=== PATIENT | male | born 1965 | race Two or more races ===

== ENCOUNTER 2024-12-25 09:31 | Inpatient (IN) | payer MEDICAID ==
[~2024-12-25] VITALS: Ht 175.3 cm; Wt 74.1 kg
[~2024-12-25 09:31] MED LIST: ASPI81CH59 PO; ATOR40TA52 PO; CEPH500C PO; EMPA1TAB PO; FURO40TA4 PO
--- NOTE | 2024-12-25 10:26 | ED.PDOC ---
General HPI Comments 59 y.o male with PMHx of CHF, presents to the ED for a chief complaint of bilateral testicle swelling associated with SOB and lower extremity swelling that started last night. Patient reports testicle swelling has worsened this morning, causing him to have difficulty with urine output. Patient reports similar issue in the past and states he was seen at the ED and had the right testicle drained. Patient denies any fever, chills, pain, nausea or vomiting. Patient admits to methamphetamine use 3-4 days ago and states occasional alcohol and tobacco use. Chief Complaint: Testicle Pain Time Seen by MD: 10:08 Primary Care Provider: KARYNA Spangler notes: Nurses Notes, Medications, Allergies Allergies: Coded Allergies: NO KNOWN ALLERGIES (Unverified , 12/04/24) Home Meds Reported Medications Empagliflozin (Jardiance) 10 Mg Tab, 1 TAB PO DAILY for 30 Days, #30 12/05/24 Aspirin (Aspirin Low Dose) 81 Mg Chw, 1 TAB PO DAILY for 30 Days, #30 12/05/24 Atorvastatin Calcium (ATORVASTATIN CALCIUM) 40 Mg Tab, 1 TAB PO DAILY for 30 Days, #30 12/05/24 Furosemide (Furosemide) 40 Mg Tab, 1 TAB PO DAILY for 60 Days, #60 12/05/24 Information Source: Patient Mode of Arrival: Ambulatory Severity: Moderate Timing: Hours Duration: Since onset Onset: Spontaneous Symptoms: None History of: Other Location male: R Scrotum, L Scrotum Penile discharge: None Modifying factors: None associated signs and symptoms: Other Past Medical History PAST MEDICAL HISTORY: CHF, Hypotension Surgical History: Hernia Repair Family History Family History: Reviewed,noncontributory to illness Social History Smoker: Cigarettes Alcohol: Occasionally Drugs: Methamphetamine Lives In: Home Constitutional: denies: chills, diaphoresis, fatigue, fever, malaise, sweats, weakness, others EENTM: denies: blurred vision, double vision, ear bleeding, ear discharge, ear drainage, ear pain, ear ringing, eye pain, eye redness, hearing loss, mouth pain, mouth swelling, nasal discharge, nose bleeding, nose congestion, nose pain, photophobia, tearing, throat pain, throat swelling, voice changes, others Respiratory: reports: SOB at rest, shortness of breath, SOB with excertion; denies: cough, hemoptysis, orthopnea, stridor, wheezing, others Cardiovascular: denies: chest pain, dizzy spells, diaphoresis, Dyspnea on exertion, edema, irregular heart beat, left arm pain, lightheadedness, palpitati ons, PND, syncope, others Gastrointestinal: denies: abdomen distended, abdominal pain, blood streaked bowels, constipated, diarrhea, dysphagia, difficulty swallowing, hematemesis, melena, nausea, poor appetite, poor fluid intake, rectal bleeding, rectal pain, vomiting, others Genitourinary: reports: testicle swelling; denies: burning, dysuria, flank pain, frequency, hematuria, incontinence, penile discharge, penile sore, pain, testicle pain, urgency, others Neurological: denies: dizziness, fainting, headache, left sided numbness, left sided weakness, numbness, paresthesia, pre-existing deficit, right sided numbness, right sided weakness, seizure, speech problems, tingling, tremors, weakness, others Musculoskeletal: reports: others (lower extremity swelling ); denies: back pain, gout, joint pain, joint swelling, muscle pain, muscle stiffness, neck pain Integumetry: denies: bruises, change in color, change in hair/nails, dryness, laceration, lesions, lumps, rash, wounds, others Allergic/Immunocompromised: denies: Difficulty Healing, Frequent Infections, Hives, Itching, others Hematologic/Lymphatic: denies: anemia, blood clots, easy bleeding, easy bruising, swollen glands, others Endocrine: denies: excessive hunger, excessive sweating, excessive thirst, excessive urination, flushing, intolerance to cold, intolerance to heat, unexplained weight gain, unexplained weight loss, others Psychiatric: denies: anxiety, bipolar disorder, depression, hopeless, panic disorder, schizophrenia, sleepless, suicidal, others All Other Systems: Reviewed and Negative Physical Exam General Appearance: Moderate Distress HEENT: Normal ENT Inspection, Pharynx Normal, TMs Normal Neck: Full Range of Motion, Non-Tender, Normal, Normal Inspection Respiratory: Chest Non-Tender, Lungs Clear, No Accessory Muscle Use, No Respiratory Distress, Normal Breath Sounds Cardiovascular: No Edema, No JVD, No Murmur, No Gallop, Normal Peripheral Pulses, Regular Rate/Rhythm Breast Exam: Deferred Gastrointestinal: No Organomegaly, Non Tender, No Pulsatile Mass, Normal Bowel Sounds, Soft Genitalia: Scrotum, Testicle (Testicular swelling scrotal swelling) Pelvic: Deferred Rectal: Deferred Extremities: No calf tenderness, Normal capillary refill, Normal inspection, Normal range of motion, Non-tender, No pedal edema Musculoskeletal : Apperance: Normal Neurologic: Alert, automation/controls manager II-XII nml as Tested, No Motor Deficits, Normal Affect, Normal Mood, No Sensory Deficits Cerebellar Function: Normal Reflexes: Normal Skin: Dry, Normal Color, Warm Lymphatic: No Adenopathy Was a procedure done? Was a procedure done?: No Differential Diagnosis Kidney stone (Female): N/A Penile/Scrotal: Epidiymitis, Prostatitis, Fractured Penis, Hydrocele, Testicular Torsion, Urolithiasis X-Ray, Labs, Meds, VS Vital Signs Date Time Temp Pulse Resp B/P (MAP) Pulse Ox O2 Delivery O2 Flow Rate FiO2 12/25/24 13:00 90 12/25/24 13:00 62 21 110/71 (84) 95 12/25/24 11:13 64 24 94 Room Air* 0 21 12/25/24 10:53 113/78 12/25/24 10:50 88 16 113/78 (90) 94 12/25/24 10:10 Room Air* 0 21 12/25/24 09:41 96.9 53 16 122/66 (84) 96 96.9 Lab Test 12/25/24 12:53 12/25/24 11:42 12/25/24 11:25 12/25/24 10:38 Range/Units Troponin I High Sensitivity 14 15 </=54 ng/L Urine Color Light-yellow Yellow Urine Clarity Clear Clear Urine pH 6.0 5.0-9.0 Urine Specific Malcolm 1.007 1.001-1.035 Urine Protein Negative Negative Urine Ketones Negative Negative Urine Blood Negative Negative /uL Urine Nitrite Negative Negative Urine Bilirubin Negative Negative Urine Urobilinogen Normal Negative mg/dL Urine Leukocyte Esterase Negative Negative /uL Urine RBC <1 0 - 3 /hpf Urine Microscopic WBC < 1 0-3 /HPF Urine Squamous Epithelial Cells None seen <5 /hpf Urine Bacteria None seen None Seen /hpf Urine Hyaline Casts Few 0 - 2 /lpf Urine Glucose Normal Normal mg/dL Urine Opiates Screen Neg NEGATIVE Urine Fentanyl Screen Neg NEGATIVE Urine Barbiturates Screen Neg NEGATIVE Urine Phencyclidine Screen Neg NEGATIVE Urine Amphetamines Screen Neg NEGATIVE Urine Benzodiazepines Screen Neg NEGATIVE Urine Cocaine Screen Neg NEGATIVE Urine Cannabinoids Screen Neg NEGATIVE POC Glucose 70 70-106 mg/dl White Blood Count 4.4 4.4-10.8 10^3/uL Red Blood Count 5.30 4.5-5.90 10^6/uL Hemoglobin 15.7 13.5-17.5 g/dL Hematocrit 47.7 41.0-53.0 % Mean Corpuscular Volume 90.0 80.0-100.0 fL Mean Corpuscular Hemoglobin 29.7 28.0-32.0 pg Mean Corpuscular Hemoglobin Concent 33.0 32.0-36.0 g/dL Red Cell Distribution Width 15.6 H 11.8-14.3 % Platelet Count 221 140-450 10^3/uL Mean Platelet Volume 7.2 6.9-10.8 fL Neutrophils (%) (Auto) 68.2 37.0-80.0 % Lymphocytes (%) (Auto) 19.3 10.0-50.0 % Monocytes (%) (Auto) 9.3 0.0-12.0 % Eosinophils (%) (Auto) 1.6 0.0-7.0 % Basophils (%) (Auto) 1.6 0.0-2.0 % Neutrophils # (Auto) 3.0 1.6-8.6 10 ^3/uL Lymphocytes # (Auto) 0.8 0.4-5.4 10 ^3/uL Monocytes # (Auto) 0.4 0-1.3 10 ^3/uL Eosinophils # (Auto) 0.1 0-0.8 10 ^3/uL Basophils # (Auto) 0.1 0-0.2 10 ^3/uL Nucleated Red Blood Cells 0.0 % Sodium Level 136 136-145 mmol/L Potassium Level 3.7 3.5-5.1 mmol/L Chloride Level 104 98-107 mmol/L Carbon Dioxide Level 25 20-31 mmol/L Anion Gap 7 5-15 Blood Urea Nitrogen 23 9-23 mg/dL Creatinine 1.39 H 0.700-1.30 mg/dL Glomerular Filtration Rate Calc 58 >90 mL/min BUN/Creatinine Ratio 16.5 10.0-20.0 Serum Glucose 42 *L 74-106 mg/dL Calcium Level 9.1 8.7-10.4 mg/dL B-Type Natriuretic Peptide 4787.87 0-100 pg/mL Current Medications Medications (Trade) Dose Ordered Sig/Negrita Route Start Time Stop Time Status Last Admin Furosemide (Lasix Injection) 40 mg ONCE ONCE IV 12/25/24 10:30 12/25/24 10:31 DC 12/25/24 10:53 The patient was given Lasix 40 mg IV push The patient's urine test is negative. The CBC and chemistry panel are within normal limits except for BUN of 23 and a creatinine of 1.39 The urine test is negative The troponin level x2 is negative The BNP is significantly elevated at 4787.87 The chest x-ray shows: IMPRESSION: Patchy bibasilar airspace opacities with trace pleural effusion. At this time, the patient was being admitted to the hospitalist A cardiology consult will be obtained The patient was understands and agrees with the management The patient states that he did not want a [place] catheter placed The patient was able to give us a urine sample The patient was also having episodes of hypoglycemia Images Reviewed?: Images reviewed and evaluated by me Time of 1ST Reevaluation: 10:22 Reevaluation 1ST: Unchanged Patient Education/Counseling: Diagnosis, Treatment, Prognosis, Need For Follow Up Family Education/Counseling: No Family Present Departure 1 Departure Time of Disposition: 14:27 Impression: Primary Impression: Testicular swelling Additional Impressions: Shortness of breath Hypoglycemia Elevated brain natriuretic peptide (BNP) level Disposition: ADMITTED INPATIENT Admit to: Med Surg Condition: Fair Critical Care Note Critical Care Time?: Yes (45 min-critical care time only) Stability Stability form required: Yes Unstable for transfer: Telemetry monitoring (Telemetry monitoring required), ED Physician Assesment (Clinical assesment) I personally scribed for THANG JOYNER MD ([email or web address]) on 12/25/24 at 10:25. Electronically submitted by Miroslava Walton ([facility]). THANG JOYNER MD Dec 25, 2024 10:25
[2024-12-25] MEDS: FUROSEMIDE 40 MG/4 ML VIAL IV ONE (10:53)
[2024-12-25 11:01] LABS: Basophils # (auto) 0.1 10 ^3/uL (0-0.2); Basophils % (auto) 1.6 % (0.0-2.0); Eosinophils # (auto) 0.1 10 ^3/uL (0-0.8); Eosinophils % (auto) 1.6 % (0.0-7.0); Hematocrit 47.7 % (41.0-53.0); Hemoglobin 15.7 g/dL (13.5-17.5); Lymphocytes # (auto) 0.8 10 ^3/uL (0.4-5.4); Lymphocytes % (auto) 19.3 % (10.0-50.0); Mean Corpuscular Hemoglobin 29.7 pg (28.0-32.0); Monocytes # (auto) 0.4 10 ^3/uL (0-1.3); Monocytes % (auto) 9.3 % (0.0-12.0); Neutrophils % (auto) 68.2 % (37.0-80.0); Platelet Count (auto) 221 10^3/uL (140-450); Red Cell Distribution Width 15.6 % (11.8-14.3); White Blood Cell 4.4 10^3/uL (4.4-10.8)
[2024-12-25 11:13] VITALS: PULSE 64; RESP 24; O2SAT 94
[2024-12-25 11:13] LABS: Anion Gap 7 (5-15); Carbon Dioxide 25 mmol/L (20-31); Chloride 104 mmol/L (98-107); Potassium 3.7 mmol/L (3.5-5.1); Sodium 136 mmol/L (136-145)
[2024-12-25 11:14] LABS: Calcium 9.1 mg/dL (8.7-10.4)
[2024-12-25 11:19] LABS: BUN/Creatinine Ratio 16.5 (10.0-20.0)
[2024-12-25 11:20] LABS: Blood Urea Nitrogen 23 mg/dL (9-23); Glucose 42 mg/dL (74-106)
[2024-12-25 11:43] LABS: Urine Bacteria None Seen /hpf (None Seen)
--- NOTE | 2024-12-25 11:52 | DVH ---
XY CHEST TWO VIEWS ROUTINE, HISTORY: sob COMPARISON: None None TECHNICAL DATA: 1 view of the chest was obtained. FINDINGS: Lines and tubes: None Cardiomediastinal silhouette: normal Pulmonary vasculature: normal Lung expansion: normal Lung airspace: Patchy bibasilar airspace opacities with trace pleural effusion. Lung interstitium: normal Pleura: Pneumothorax: no Bones: Unremarkable Other: no IMPRESSION: Patchy bibasilar airspace opacities with trace pleural effusion.
[2024-12-25 12:01] LABS: Urine Blood Negative /uL (Negative); Urine Clarity Clear (Clear); Urine Color Light-Yellow (Yellow); Urine Hyaline Cast FEW /lpf (0 - 2); Urine Protein, UAD Negative (Negative); Urine Specific Gravity 1.007 (1.001-1.035); Urine Squamous Epithelial Cell None Seen /hpf (<5); Urine Urobilinogen Normal (Negative); Urine WBC < 1 /HPF (0-3)
[2024-12-25 12:16] LABS: Amphetamine Screen, Urine Neg (NEGATIVE)
[2024-12-25 12:18] LABS: Barbiturate Scree,Urine Neg (NEGATIVE); Benzodiazephine Screen, Urine Neg (NEGATIVE); Cannabinoid Screen, Urine Neg (NEGATIVE); Cocaine Screen, Urine Neg (NEGATIVE); Opiate Scree,Urine Neg (NEGATIVE); Phencyclidine Screen, Urine Neg (NEGATIVE)
--- NOTE | 2024-12-25 12:50 | DVH ---
CLINICAL INFORMATION: Pain. TECHNIQUE: Grayscale sonographic imaging of the testicles and scrotal contents was performed , mariam radha by color doppler technique. Duplex doppler ultrasound of both testicles was performed. COMPARISON: US TESTICULAR ULTRASOUND on DOS: 12/06/24 FINDINGS: The right testicle measures 2.5 x 2.1 x 2.9 cm, within normal limits. Unremarkable echogenicity of th e right testicle. Peripheral blood flow demonstrated. Limited flow demonstrated centrally. Unremark able epididymis. Moderate to large right hydrocele. Small calcification along the periphery of the hy drocele measuring up to 0.4 cm. The left testicle measures 1.4 x 2.8 x 3.1 cm, within normal limits. Heterogeneous echotexture of the left testicle. Limited venous flow in the left testicle. Questionable arterial flow. Unremarkable epididymis. No hydrocele or varicocele. IMPRESSION: 1. Very limited venous flow in the left testicle and questionable arterial flow with heterogeneous ec hogenicity. Testicular torsion not excluded. 2. Moderate to large right hydrocele. Peripheral flow demonstrated in the right testicle, which demon strates unremarkable echogenicity. Critical findings Critical Result: Testicular torsion not excluded in the left testicle. Findings discussed with the propellant charge loader in the ER at 12/25/2024 02:47 PM CDT, and acknowledged receipt and understanding of the findings. ..
--- NOTE | 2024-12-25 12:52 | ECG ---
[facility] Test Date: 2024-12-25 Test Time: 11:44:36 Pat Name: DALLIN RINCON Department: ED Room: 0272 Gender: M [employer]: tung : 1965 Requested By: THANG JOYNER Order Number: [id number] Reading MD: Eliot Calloway Measurements Intervals [place] Rate: 65 P: 81 WA: 214 QRS: 105 QRSD: 190 T: -17 QT: 611 QTc: 636 Interpretive Statements Sinus bradycardia Atrial premature complexes in couplets Prolonged WA interval Consider left ventricular hypertrophy Abnormal T, consider ischemia, lateral leads Prolonged QT interval Baseline wander in lead(s) V6 Electronically Signed On 12-25-2024 20:39:45 PDT by Eliot Calloway Please click the below link to view image of tracing.
[2024-12-25] MEDS ORDERED: ACETAMINOPHEN 325 MG TAB PO PRN (14:15)
[2024-12-25] MEDS ORDERED: ONDANSETRON HCL 4 MG/2 ML VIAL IV PRN (14:15)
[2024-12-25] MEDS ORDERED: MORPHINE SULFATE INJ 2 MG/ml SYRG IV PRN (14:15)
--- NOTE | 2024-12-25 15:05 | DVHHP2 ---
History of Present Illness Reason for Visit: Testicular pain History of Present Illness This 59-year-old male with past medical history of HFrEF 10%, hydrocele, tobacco and amphetamine use presents stating with a chief complaint of bilateral testicular swelling. The patient reports testicular swelling started yesterday and has progressed, symptoms is associated with shortness of breath and dyspnea. The patient states history of hydrocele and had it drained two weeks ago. Patient also reports history of congestive heart failure with a low EF, he was supposed to take Entresto but due to hypotension has not been taking it. The patient states continue to use tobacco and amphetamine. Denies chest pain, palpitations, nausea, vomiting, or abdominal pain. Past Medical History As stated in HPI Past Surgical History Denies Family History Denies Past Social History Tobacco use 2-3 sticks per day Amphetamine use Review of Systems Constitutional: Yes: Malaise; No: Fever, Chills, Sweats, Weakness, Other ENT: No: Ear pain, Ear discharge, Nose pain, Nose discharge, Nose congestion, Mouth pain, Mouth swelling, Throat pain, Throat swelling, Other Respiratory: Shortness of breath; No: Cough, Dry, SOB with excertion, Wheezing, Hemoptysis, Pleuritic Pain, Sputum, Wheezing, Other Cardiovascular: Paroxysmal Noc. Dyspnea; No: Chest Pain, Palpitations, Orthopnea, Edema, Lt Headedness, Other Gastrointestinal: No: Nausea, Vomiting, Abdominal Pain, Diarrhea, Constipation, Melena, Hematochezia, Other Genitourinary: No Dysuria, No Frequency, No Incontinence, No Hematuria, No Retention; Other (Testicular swelling and pain) Musculoskeletal: No: other, neck pain, shoulder pain, arm pain, back pain, hand pain, leg pain, foot pain Skin: No: Rash, Lesions, Jaundice, Bruising, Other Neurological: No: Weakness, Numbness, Incoordination, Change in speech, Confusion, Seizures, Other Allergies: Coded Allergies: NO KNOWN ALLERGIES (Unverified , 12/04/24) Medications Current Medications Medications Dose Ordered Sig/Negrita Route Start Time Stop Time Status Last Admin Dose Admin Acetaminophen/ Hydrocodone Bitart 1 tab Q4HP PRN PO 12/25/24 14:15 UNV Ondansetron HCl 4 mg Q4HP PRN IV 12/25/24 14:15 UNV Enoxaparin Sodium 30 mg DAILY SC 12/26/24 10:00 UNV Acetaminophen 650 mg Q6HP PRN PO 12/25/24 14:15 UNV Morphine Sulfate 2 mg Q4HPRN PRN IV 12/25/24 14:15 UNV Exam Vital Signs Vital Signs Date Time Temp Pulse Resp B/P (MAP) Pulse Ox O2 Delivery O2 Flow Rate FiO2 12/25/24 13:00 90 12/25/24 13:00 21 110/71 (84) 95 12/25/24 11:13 Room Air* 0 21 12/25/24 09:41 96.9 96.9 General Appearance: Alert, Oriented X3, Cooperative, mild distress HEENT: Atraumatic, PERRLA, EOMI Respiratory: Clear to auscultation, Normal air movement Cardiovascular: Normal S1, Normal S2 Abdominal: Soft, No tenderness Extremities: No clubbing Neuro: Normal speech Labs/Xrays Labs Test 12/25/24 12:53 12/25/24 11:42 12/25/24 11:25 12/25/24 10:38 Range/Units Troponin I High Sensitivity 14 </=54 ng/L Urine Color Light-yellow Yellow Urine Clarity Clear Clear Urine pH 6.0 5.0-9.0 Urine Specific [place] 1.007 1.001-1.035 Urine Protein Negative Negative Urine Ketones Negative Negative Urine Blood Negative Negative /uL Urine Nitrite Negative Negative Urine Bilirubin Negative Negative Urine Urobilinogen Normal Negative mg/dL Urine Leukocyte Esterase Negative Negative /uL Urine RBC <1 0 - 3 /hpf Urine Microscopic WBC < 1 0-3 /HPF Urine Squamous Epithelial Cells None seen <5 /hpf Urine Bacteria None seen None Seen /hpf Urine Hyaline Casts Few 0 - 2 /lpf Urine Glucose Normal Normal mg/dL Urine Opiates Screen Neg NEGATIVE Urine Fentanyl Screen Neg NEGATIVE Urine Barbiturates Screen Neg NEGATIVE Urine Phencyclidine Screen Neg NEGATIVE Urine Amphetamines Screen Neg NEGATIVE Urine Benzodiazepines Screen Neg NEGATIVE Urine Cocaine Screen Neg NEGATIVE Urine Cannabinoids Screen Neg NEGATIVE POC Glucose 70 70-106 mg/dl White Blood Count 4.4 4.4-10.8 10^3/uL Red Blood Count 5.30 4.5-5.90 10^6/uL Hemoglobin 15.7 13.5-17.5 g/dL Hematocrit 47.7 41.0-53.0 % Mean Corpuscular Volume 90.0 80.0-100.0 fL Mean Corpuscular Hemoglobin 29.7 28.0-32.0 pg Mean Corpuscular Hemoglobin Concent 33.0 32.0-36.0 g/dL Red Cell Distribution Width 15.6 H 11.8-14.3 % Platelet Count 221 140-450 10^3/uL Mean Platelet Volume 7.2 6.9-10.8 fL Neutrophils (%) (Auto) 68.2 37.0-80.0 % Lymphocytes (%) (Auto) 19.3 10.0-50.0 % Monocytes (%) (Auto) 9.3 0.0-12.0 % Eosinophils (%) (Auto) 1.6 0.0-7.0 % Basophils (%) (Auto) 1.6 0.0-2.0 % Neutrophils # (Auto) 3.0 1.6-8.6 10 ^3/uL Lymphocytes # (Auto) 0.8 0.4-5.4 10 ^3/uL Monocytes # (Auto) 0.4 0-1.3 10 ^3/uL Eosinophils # (Auto) 0.1 0-0.8 10 ^3/uL Basophils # (Auto) 0.1 0-0.2 10 ^3/uL Nucleated Red Blood Cells 0.0 % Sodium Level 136 136-145 mmol/L Potassium Level 3.7 3.5-5.1 mmol/L Chloride Level 104 98-107 mmol/L Carbon Dioxide Level 25 20-31 mmol/L Anion Gap 7 5-15 Blood Urea Nitrogen 23 9-23 mg/dL Creatinine 1.39 H 0.700-1.30 mg/dL Glomerular Filtration Rate Calc 58 >90 mL/min BUN/Creatinine Ratio 16.5 10.0-20.0 Serum Glucose 42 *L 74-106 mg/dL Calcium Level 9.1 8.7-10.4 mg/dL B-Type Natriuretic Peptide 4787.87 0-100 pg/mL PROCEDURE(s): CXR2 - CHEST TWO VIEWS ROUTINE REASON: sob ORDER NUMBER(s): [id number], ACCESSION NUMBER(s): [id number] XY CHEST TWO VIEWS ROUTINE, HISTORY: sob COMPARISON: None None TECHNICAL DATA: 1 view of the chest was obtained. FINDINGS: Lines and tubes: None Cardiomediastinal silhouette: normal Pulmonary vasculature: normal Lung expansion: normal Lung airspace: Patchy bibasilar airspace opacities with trace pleural effusion. Lung interstitium: normal Pleura: Pneumothorax: no Bones: Unremarkable Other: no IMPRESSION: Patchy bibasilar airspace opacities with trace pleural effusion. Assessment/Plan Assessment/Plan # Acute testicular pain # Hx of hydrocele s/p needle drainage 2 weeks ago testicles # rule out testicular torsion Admit to medical-surgical unit Repeat ultrasound Urology consult Pain control # CHF exacerbation, NYHA IV # HFrEF EF 10% IV diuresis Echo Cardiology consult Daily weight, strict intake and output repeat BNP in AM # tobacco use # amphetamine use Nicotine patch Smoking and amphetamine cessation counseled DVT prophylaxis Medical plan discussed with patient and RN Plan discussed with: Patient My Orders Orders - NORBERT KUMAR Procedure Category Date Status Time Admit ADMIT 12/25/24 Transmitted 14:03 Code Status CODE 12/25/24 Transmitted 14:03 Hydrocodone-Acet PHA 12/25/24 Logged 5/325mg Tab ([place] 14:15 Ondansetron Hcl PHA 12/25/24 Logged (Zofran) 14:15 Fall Risk Precautions SHILOH 12/25/[address] 14:03 Complete Blood Count LAB 12/26/24 Verified 04:00 Comprehensive LAB 12/26/24 Verified Metabolic Panel 04:00 Cardiac DIET 12/25/24 Transmitted Diet-2gna,Lofat,Lochol Dinner Condition: Fair SHILOH 12/25/24 In Process 14:03 Enoxaparin Sodium PHA 12/26/24 Logged (Lovenox) 10:00 Acetaminophen Tablet PHA 12/25/24 Logged (Tylenol Tablet) 14:15 Morphine Sulfate PHA 12/25/24 Logged Injection 14:15 * Urology Consult CONS 12/25/24 Transmitted 14:03 Npo After Midnight ORDERS 12/25/24 Transmitted Echo 2d Mode Cardiac US 12/25/24 Verified DOP 14:46 B-Type Natriuretic LAB 12/26/24 Verified Peptide 04:00 Daily Weight SHILOH 12/25/24 Verified 14:46 Strict I & O SHILOH 12/25/24 Verified 14:46 Empagliflozin PHA 12/26/24 Verified (Jardiance) 10:00 (Nf) Aspirin (Aspirin PHA 12/26/24 Verified Low Dose) 10:00 (Nf) Atorvastatin PHA 12/26/24 Verified Calcium 10:00 * Cardiology Consult CONS 12/25/24 Verified 14:46 Furosemide Injection PHA 12/26/24 Verified (Lasix Injection) 10:00 Date of Service: Dec 25, 2024 Billing Provider: NORBERT KUMAR Common Visit Codes: 77499-ECPWQUA INP/OBS CARE (HIGH) Consultation Codes: 94065-HQRGTPBVH CONSULT <45MIN NORBERT KUMAR Dec 25, 2024 15:05
[2024-12-25 15:59] LABS: INR 1.17 (0.9-1.15); Partial Thromboplastin Time 26.6 SEC (24.5-34.5); Prothrombin Time 12.2 sec (9.3-11.8)
--- NOTE | 2024-12-25 17:14 | DVH ---
ULTRASOUND OF SCROTUM AND CONTENTS. INDICATION: PER MD, TESTICLE PAIN COMPARISON: US TESTICULAR ULTRASOUND on DOS: 12/25/24, TECHNIQUE: Multiple real-time grayscale sonographic and color and duplex Doppler images of the scrotu m and its contents were obtained. FINDINGS: The right testicle measures 4.5 x 2.8 x 3.0 cm. The left testicle measures 3.2 x 2.1 x 2.0 cm. Both testicles demonstrate homogeneous echotexture without evidence of focal lesions. The bilateral epididymides are not evaluated on this study. Subsequent color and duplex Doppler interrogation of the testes demonstrated symmetric normal vascula r flow to both testicles. Similar moderate to large right hydrocele. Scrotal edema is noted. IMPRESSION: 1. No evidence of torsion, epididymitis, and/or orchitis. Improved findings when compared to previous same day ultrasound. 2. Similar moderate to large right hydrocele.
[2024-12-25] MEDS: FUROSEMIDE INJECTION 100 MG in SODIUM CHL 0.9% 100 ML IV SCH (17:30)
--- NOTE | 2024-12-25 17:51 | DVHINCON2 ---
Date of service: Dec 25, 2024 Referring Physician Hospitalist Reason for Consultation possible torsion History of Present Illness History Source: Patient, RN Notes, MD Notes, Old Records Exam Limitations: No limitations HPI 59 y.o male with PMHx of CHF, presents to the ED for a chief complaint of bilateral testicle swelling associated with SOB and lower extremity swelling that started last night. Patient reports testicle swelling has worsened this morning, causing him to have difficulty with urine output. Patient reports similar issue in the past and states he was seen at the ED and had the right testicle drained. Patient denies any fever, chills, pain, nausea or vomiting. Patient admits to methamphetamine use 3-4 days ago and states occasional alcohol and tobacco use. Home Meds Reported Medications Empagliflozin (Jardiance) 10 Mg Tab, 1 TAB PO DAILY for 30 Days, #30 12/05/24 Aspirin (Aspirin Low Dose) 81 Mg Chw, 1 TAB PO DAILY for 30 Days, #30 12/05/24 Atorvastatin Calcium (ATORVASTATIN CALCIUM) 40 Mg Tab, 1 TAB PO DAILY for 30 Days, #30 12/05/24 Furosemide (Furosemide) 40 Mg Tab, 1 TAB PO DAILY for 60 Days, #60 12/05/24 Past Medical History Patient Family History: Alcoholism G8 FATHER, , Age: 40's - 50, Onset:Unknown Cerebrovascular accident (CVA) G8 MOTHER, , Age: 60 years and older, Onset:50's - 60 Smoker: Positive Drugs: Amphetimines Review of Systems Genitourinary: Incontinence, Pain H&P Exam Vital Signs Vital Signs Date Time Temp Pulse Resp B/P (MAP) Pulse Ox O2 Delivery O2 Flow Rate FiO2 12/25/24 15:01 47 16 120/75 (90) 95 12/25/24 15:00 98.6 98.6 12/25/24 11:13 Room Air* 0 21 General Appeara: Well developed, Well nourished, Normal Appearance, Mild distress Neuro/Mental St: Alert, Oriented Skin Exam: Normal inspection, Normal color, Warm/dry Labs/Xrays [facility] [id number] [place] [id number] Ph: [phone] DIAGNOSTIC IMAGING Diagnostic Imaging Report : [id number] Signed PATIENT: DALLIN RINCON ACCT: [id number] UNIT: [id number] : 1965 LOC: ER ROOM / BED: / AGE / SEX: 59 / M ADM STATUS: REG ER SERVICE 1022 ORDERING PHYSICIAN: THANG JOYNER MD PROCEDURE(s): TESUS - TESTICULAR ULTRASOUND REASON: sob ORDER NUMBER(s): [id number], ACCESSION NUMBER(s): [id number] CLINICAL INFORMATION: Pain. TECHNIQUE: Grayscale sonographic imaging of the testicles and scrotal contents was performed , assisted by color doppler technique. Duplex doppler ultrasound of both testicles was performed. COMPARISON: US TESTICULAR ULTRASOUND on DOS: 12/06/24 FINDINGS: The right testicle measures 2.5 x 2.1 x 2.9 cm, within normal limits. Unremarkable echogenicity of the right testicle. Peripheral blood flow demonstrated. Limited flow demonstrated centrally. Unremarkable epididymis. Moderate to large right hydrocele. Small calcification along the periphery of the hydrocele measuring up to 0.4 cm. The left testicle measures 1.4 x 2.8 x 3.1 cm, within normal limits. Heterogeneous echotexture of the left testicle. Limited venous flow in the left testicle. Questionable arterial flow. Unremarkable epididymis. No hydrocele or varicocele. IMPRESSION: 1. Very limited venous flow in the left testicle and questionable arterial flow with heterogeneous echogenicity. Testicular torsion not excluded. 2. Moderate to large right hydrocele. Peripheral flow demonstrated in the right testicle, which demonstrates unremarkable echogenicity. Critical findings Critical Result: Testicular torsion not excluded in the left testicle. Findings discussed with the viscose cellar charge hand in the ER at 12/25/2024 02:47 PM CDT, and acknowledged receipt and understanding of the findings. .. ATED BY: REECE ABAD DO DICTATED DATE/TIME: 12/25/241246 SIGNED BY: REECE ABAD DO SIGNED DATE/TIME: 12/25/241246 CC: [place] [id number] Ph: [phone] DIAGNOSTIC IMAGING Diagnostic Imaging Report : [id number] Signed PAT[facility]: [facility]CON [facility] [id number] UNIT: [id number] : 1965 LOC: OVERFLOW ROOM / BED: [address] [place] [address] / A AGE / SEX: 59 / M ADM STATUS: ADM IN SERVICE 1600 ORDERING PHYSICIAN: THANG JOYNER MD PROCEDURE(s): TESUS - TESTICULAR ULTRASOUND REASON: HERIBERTO PÉREZ, TESTICLE PAIN ORDER NUMBER(s): [id number], ACCESSION NUMBER(s): [id number] ULTRASOUND OF SCROTUM AND CONTENTS. INDICATION: PER , TESTICLE PAIN COMPARISON: US TESTICULAR ULTRASOUND on DOS: 12/25/24, TECHNIQUE: Multiple real-time grayscale sonographic and color and duplex Doppler images of the scrotum and its contents were obtained. FINDINGS: The right testicle measures 4.5 x 2.8 x 3.0 cm. The left testicle measures 3.2 x 2.1 x 2.0 cm. Both testicles demonstrate homogeneous echotexture without evidence of focal lesions. The bilateral epididymides are not evaluated on this study. Subsequent color and duplex Doppler interrogation of the testes demonstrated symmetric normal vascular flow to both testicles. Similar moderate to large right hydrocele. Scrotal edema is noted. IMPRESSION: 1. No evidence of torsion, epididymitis, and/or orchitis. Improved findings when compared to previous same day ultrasound. 2. Similar moderate to large right hydrocele. ATED BY: REECE KRISHNA MD DICTATED DATE/TIME: 12/25/241711 SIGNED BY: REECE KRISHNA MD SIGNED DATE/TIME: 12/25/241711 CC: Labs Test 12/25/24 14:45 12/25/24 11:42 12/25/24 11:25 12/25/24 10:38 Range/Units Prothrombin Time 12.2 H 9.3-11.8 sec Prothrombin Time INR 1.17 H 0.9-1.15 Activated Partial Thromboplast Time 26.6 24.5-34.5 SEC Troponin I High Sensitivity 15 </=54 ng/L Urine Color Light-yellow Yellow Urine Clarity Clear Clear Urine pH 6.0 5.0-9.0 Urine Specific Marlin 1.007 1.001-1.035 Urine Protein Negative Negative Urine Ketones Negative Negative Urine Blood Negative Negative /uL Urine Nitrite Negative Negative Urine Bilirubin Negative Negative Urine Urobilinogen Normal Negative mg/dL Urine Leukocyte Esterase Negative Negative /uL Urine RBC <1 0 - 3 /hpf Urine Microscopic WBC < 1 0-3 /HPF Urine Squamous Epithelial Cells None seen <5 /hpf Urine Bacteria None seen None Seen /hpf Urine Hyaline Casts Few 0 - 2 /lpf Urine Glucose Normal Normal mg/dL Urine Opiates Screen Neg NEGATIVE Urine Fentanyl Screen Neg NEGATIVE Urine Barbiturates Screen Neg NEGATIVE Urine Phencyclidine Screen Neg NEGATIVE Urine Amphetamines Screen Neg NEGATIVE Urine Benzodiazepines Screen Neg NEGATIVE Urine Cocaine Screen Neg NEGATIVE Urine Cannabinoids Screen Neg NEGATIVE POC Glucose 70 70-106 mg/dl White Blood Count 4.4 4.4-10.8 10^3/uL Red Blood Count 5.30 4.5-5.90 10^6/uL Hemoglobin 15.7 13.5-17.5 g/dL Hematocrit 47.7 41.0-53.0 % Mean Corpuscular Volume 90.0 80.0-100.0 fL Mean Corpuscular Hemoglobin 29.7 28.0-32.0 pg Mean Corpuscular Hemoglobin Concent 33.0 32.0-36.0 g/dL Red Cell Distribution Width 15.6 H 11.8-14.3 % Platelet Count 221 140-450 10^3/uL Mean Platelet Volume 7.2 6.9-10.8 fL Neutrophils (%) (Auto) 68.2 37.0-80.0 % Lymphocytes (%) (Auto) 19.3 10.0-50.0 % Monocytes (%) (Auto) 9.3 0.0-12.0 % Eosinophils (%) (Auto) 1.6 0.0-7.0 % Basophils (%) (Auto) 1.6 0.0-2.0 % Neutrophils # (Auto) 3.0 1.6-8.6 10 ^3/uL Lymphocytes # (Auto) 0.8 0.4-5.4 10 ^3/uL Monocytes # (Auto) 0.4 0-1.3 10 ^3/uL Eosinophils # (Auto) 0.1 0-0.8 10 ^3/uL Basophils # (Auto) 0.1 0-0.2 10 ^3/uL Nucleated Red Blood Cells 0.0 % Sodium Level 136 136-145 mmol/L Potassium Level 3.7 3.5-5.1 mmol/L Chloride Level 104 98-107 mmol/L Carbon Dioxide Level 25 20-31 mmol/L Anion Gap 7 5-15 Blood Urea Nitrogen 23 9-23 mg/dL Creatinine 1.39 H 0.700-1.30 mg/dL Glomerular Filtration Rate Calc 58 >90 mL/min BUN/Creatinine Ratio 16.5 10.0-20.0 Serum Glucose 42 *L 74-106 mg/dL Calcium Level 9.1 8.7-10.4 mg/dL B-Type Natriuretic Peptide 4787.87 0-100 pg/mL Assessment/Plan Problem List: (1) Hydrocele in adult (2) Testicular swelling Plan pain meds prn scrotal support urine culture outpt f/u cleared from urology standpoint Plan discussed with: Patient, Other DICK HERNANDEZ NP Dec 25, 2024 17:51
[2024-12-25 18:10] VITALS: BP 113/78; PULSE 45; RESP 19; TEMP 98.6; O2SAT 93
[2024-12-25 18:55] VITALS: BP 110/79; PULSE 55; RESP 20; TEMP 98.8; O2SAT 96
[2024-12-25 20:00] VITALS: PULSE 55; RESP 18; O2SAT 93
[2024-12-25 21:00] VITALS: BP 110/79; PULSE 60; RESP 18; TEMP 98.7; O2SAT 96
[2024-12-25] MEDS: ATORVASTATIN 20 MG TAB PO SCH (22:00)
[2024-12-26] VITALS (7 sets, daily range): BP systolic 93–123; BP diastolic 48–82; PULSE 39–62; RESP 17–19; TEMP 96–98.4; O2SAT 94–98
[2024-12-26 06:58] LABS: Basophils # (auto) 0 10 ^3/uL (0-0.2); Basophils % (auto) 0.5 % (0.0-2.0); Eosinophils # (auto) 0 10 ^3/uL (0-0.8); Eosinophils % (auto) 0.6 % (0.0-7.0); Hematocrit 46.9 % (41.0-53.0); Hemoglobin 15.4 g/dL (13.5-17.5); Lymphocytes # (auto) 0.9 10 ^3/uL (0.4-5.4); Lymphocytes % (auto) 21.2 % (10.0-50.0); Mean Corpuscular Hemoglobin 29.6 pg (28.0-32.0); Mean Corpuscular Hgb Conc. 32.9 g/dL (32.0-36.0); Mean Corpuscular Volume 90.2 fL (80.0-100.0); Monocytes # (auto) 0.5 10 ^3/uL (0-1.3); Neutrophils # (auto) 2.9 10 ^3/uL (1.6-8.6); Neutrophils % (auto) 65.7 % (37.0-80.0); Nucleated Red Blood Cells % 0.3 %; Platelet Count (auto) 198 10^3/uL (140-450); Red Cell Distribution Width 15.6 % (11.8-14.3); White Blood Cell 4.4 10^3/uL (4.4-10.8)
[2024-12-26 07:24] LABS: Albumin 3.5 g/dL (3.2-4.8); Alkaline Phosphatase 97 U/L (46-116); Anion Gap 8 (5-15); BUN/Creatinine Ratio 18.1 (10.0-20.0); Calcium 9.2 mg/dL (8.7-10.4); Carbon Dioxide 23 mmol/L (20-31); Chloride 102 mmol/L (98-107); Glucose 86 mg/dL (74-106); Total Protein 6.4 g/dL (5.7-8.2)
[2024-12-26 07:27] LABS: Alanine Aminotransferase 44 U/L (7-40); Aspartate Aminotransferase 63 U/L (13-40); Bilirubin, Total 2.9 mg/dL (0.2-1.0); Blood Urea Nitrogen 29 mg/dL (9-23); Potassium 5.2 mmol/L (3.5-5.1); Sodium 133 mmol/L (136-145)
[2024-12-26] MEDS ORDERED: FUROSEMIDE 40 MG/4 ML VIAL IV SCH (10:00)
--- NOTE | 2024-12-26 10:02 | DVHPNRES ---
Progress Note Date Seen: Dec 26, 2024 Resident Creating Document: TYREL MORA RESIDENT Has the PT tested + for MRSA If YES, has PT been informed?: No Medical Necessity Reason Pt with a Central, PICC or Fol: No Subjective Review of Systems This is a 59-year-old male with past medical history of heart failure with reduced ejection fraction of 10%(no reports and record), hydro sella, tobacco and amphetamine abuser, hyperlipidemia, who presented to the ED with chief complaint of bilateral testicular swelling. The patient reported that swelling started overnight and quickly started accumulating significant amount of fluids in the testicular region. The patient also reported associated bilateral lower extremity edema that extends from the foot all the way up to the thighs. The patient also states that he is associated with shortness of breaths and that her sister gave him a tank of oxygen because sometimes he feels out of breath. The patient states that previously they prescribed Entresto, furosemide and Jardiance but he has not been able to take these medications due to low blood pressure. The patient admits that he is only taking furosemide for his swelling. The patient also admitted doing amphetamines three weeks before due to low blood pressure and feeling weak at bed. Patient states that has been clean otherwise. Upon admission, initial CBC was grossly unremarkable and BNP showed hyperkalemia at 5.2 and creatinine 1.60. Initial BNP was 4787, troponins were negative. Initial EKG showed sinus bradycardia with a abnormal T-wave abnormalities in lateral leads. Troponins were negative we ordered an echocardiogram patient was started on furosemide drip. Initial testicular ultrasound showed that testicular torsion was not excluded but a 2nd ultrasound showed no evidence of torsion, epididymitis or orchitis. Patient was admitted for further assessment and management. Patient seen and examined at bedside. Patient is alert and oriented in person, place and time. Patient is currently on 2 L of oxygen through nasal cannula. We titrated down oxygen to 1 L. upon my examination, there is bilateral lower extremity swelling 2+ pitting edema that extends from bilateral foods all the way up to bilateral thighs. There is also significant swelling of the scrotum which might be related to severe decompensated heart failure. We will keep the patient on furosemide drip, Jardiance 10 mg daily and monitor electrolytes closely. If blood pressure allows, we will start ACES/ARBS/Entresto once kidney function slightly improves. Patient is hemodynamically stable, reports mild shortness of breath but is otherwise having no complaints. ROS Constitutional: Denies weight loss, fever and chills. HEENT: Denies changes in vision and hearing. Respiratory: Reports mild shortness of breath. Denies cough. Cardiovascular: Denies chest discomfort or palpitations GI: Denies abdominal pain, nausea, vomiting and diarrhea. : Reports significant scrotal swelling. Denies dysuria or urinary incontinence. Musculoskeletal: Reports bilateral lower extremity swelling extending to from the foot all the way up to bilateral thighs. Denies myalgias. Skin: Denies rash and pruritus. Neurological: Denies dizziness, headache, vision or hearing problems Objective vital signs Vital Sign Date Time Temp Pulse Resp B/P (MAP) Pulse Ox O2 Delivery O2 Flow Rate FiO2 12/26/24 09:00 97.8 44 19 123/80 (94) 98 97.8 12/26/24 07:50 Room Air* 0 21 Total Intake and Output 12/25/24 12/25/24 12/26/24 15:00 23:00 07:00 Intake Total 200 ml Output Total 200 ml Balance 0 ml medications Current Medications Medications Dose Ordered Sig/Negrita Route Start Time Stop Time Status Last Admin Dose Admin Acetaminophen/ Hydrocodone Bitart 1 tab Q4HP PRN PO 12/25/24 14:15 Ondansetron HCl 4 mg Q4HP PRN IV 12/25/24 14:15 Enoxaparin Sodium 30 mg DAILY SC 12/26/24 10:00 Acetaminophen 650 mg Q6HP PRN PO 12/25/24 14:15 Morphine Sulfate 2 mg Q4HPRN PRN IV 12/25/24 14:15 Empaglifozin 10 mg DAILY PO 12/26/24 10:00 Aspirin 81 mg DAILY PO 12/26/24 10:00 Atorvastatin Calcium 40 mg HS PO 12/25/24 22:00 Nicotine 1 patch DAILY TD 12/26/24 10:00 Furosemide 100 mg/ Sodium Chloride 110 ml @ 3.3 mls/hr Q24H IV 12/25/24 17:30 12/25/24 17:30 3.3 MLS/HR Examination Physical Examination General: Patient alert and oriented in person, place and time. Patient following commands. HEENT: Normocephalic, atraumatic, moist mucous membranes Respiratory/pulmonary: There are mild crackles on bilateral lung coker, no wheezes at this time. Currently on 2 L of oxygen through nasal cannula, titrated to 1 L Cardiovascular: Normal heart sounds S1 and S2 with no associated murmurs Abdomen: Abdomen nondistended, there is no pain to palpation in any of the abdominal quadrants, no palpable masses. There is significant scrotal swelling. Extremities: There is significant bilateral lower extremity 3+ pitting edema extending from bilateral foods all the way up to bilateral thighs. Peripheral Pulses: 3+ Radial (R). 3+ Radial (L). 3+ Dorsalis pedis (R). 3+ Dorsalis pedis(L) Skin: No rashes or pruritus, there is no sacral edema present at this time. Neurological: Intact cranial nerves with no focal neurologic deficits laboratory and microbiology Laboratory Tests 12/26/24 05:14 Test 12/26/24 05:14 Range/Units Serum Glucose 86 74-106 mg/dL Labs and/or images reviewed: Labs reviewed by me, Image(s) reviewed by me Problem List/Assessment/Plan Problem List/Assessment/Plan Assessment/plan Acute hypoxic respiratory failure likely due to acute decompensated heart failure Acute on chronic systolic heart failure (HFrEF) Acute bilateral scrotal edema likely due to above, ruled out acute testicular torsion -patient has anasarca, bilateral lower extremity 3+ pitting edema extending from bilateral foods all the way up to bilateral thighs. There is significant scrotal edema as well. -initial testicular ultrasound could not exclude testicular torsion but 2nd testicular ultrasound showed no evidence of torsion, epididymitis or orchitis. -EKG showed sinus bradycardia with a abnormal T-waves in lateral leads -troponins came back negative -BNP was 4787 -start furosemide drip -start Jardiance 10 mg daily -monitor electrolytes closely -patient is currently on 2 L per minute of oxygen through nasal cannula, we titrated down to 1 L per minute we will monitor saturations. -ordered echocardiogram -strict in's and out -cardiac diet NEIL likely due to vasomotor nephropathy in the setting of decompensated heart failure -creatinine 1.60, BUN 29 -avoid nephrotoxic drugs -patient is volume overload, on furosemide drip Acute hyperkalemia -potassium 5.2 -gave 10 units of insulin, sodium bicarbonate and dextrose -we will monitor potassium and other electrolytes closely. Acute transaminitis -AST 63, ALT 44 -Monitor liver enzymes Dyslipidemia -ordered lipid panel -start atorvastatin 40 mg daily DVT prophylaxis -enoxaparin 30 mg SC daily. Goals of care discussed with the patient at bedside for 20 minutes, FULL CODE Plan discussed with Dr. Whitney Plan discussed with: Patient, Other (Nurse) My Orders My Orders Orders - TYREL MORA Procedure Category Date Status Time Potassium LAB 12/26/24 Logged 11:00 Addendum Addendum Addendum I was physically present for the hill portions of the service provided to patient by THE RESIDENT. I have reviewed the documentation, discussed the case with resident and agree with the resident's documentation except as noted. Also the patient's clinical case was discussed with the patient's nurse. This medical document was created using an electronic medical record system with computerized dictation system. Although this document has been carefully reviewed, there might still be some phonetic and typographical errors. These areas are purely typographical due to imperfections of the software programs, and do not reflect any compromise in the patient's medical care. Late signature. Date of Service: Dec 26, 2024 Billing Provider: LAURIE WHITNEY MD Common Visit Codes: 63510-CUTAYMYZHT INP/OBS CARE(HIGH) Secondary Visit Codes: 06149-[id number] CARE PLAN 30 MINUTES (20 minutes) TYREL MORA RESIDENT Dec 26, 2024 10:02 LAURIE WHITNEY MD Dec 28, 2024 08:23
[2024-12-26 10:18] LABS: Triglycerides 57 mg/dL (< 150)
[2024-12-26 10:19] LABS: LDL Cholesterol 88 mg/dL (< 100)
[2024-12-26 10:21] LABS: Cholesterol 125 mg/dL (< 200)
[2024-12-26 10:23] LABS: HDL Cholesterol 34 mg/dL (40-59)
[2024-12-26] MEDS: InsuLIN REG 1unit/0.01ml Soln (100units/ml) IV ONE (10:33)
[2024-12-26] MEDS: DEXTROSE (50%) 50ML SYRG IV ONE (10:33)
[2024-12-26] MEDS: SODIUM BICARB 8.4% 50Meq/50ml SYR INJ IV ONE (10:33)
[2024-12-26] MEDS: ASPirin 81 mg TAB PO SCH (10:33)
[2024-12-26] MEDS: ENOXAPARIN SOD 30 MG/0.3 ML SYRINGE SC SCH (10:34)
[2024-12-26] MEDS: EMPAGLIFLOZIN 10 MG TAB PO SCH (10:34)
[2024-12-26] MEDS: NICOTINE 7MG/24HR TOPICAL PATCH TD SCH (10:34)
[2024-12-26] MEDS: HYDROcodone-ACET 5/325MG TAB PO PRN (20:08)
[2024-12-27 07:04] LABS: Basophils # (auto) 0 10 ^3/uL (0-0.2); Basophils % (auto) 0.7 % (0.0-2.0); Eosinophils # (auto) 0 10 ^3/uL (0-0.8); Eosinophils % (auto) 0.6 % (0.0-7.0); Hematocrit 45.7 % (41.0-53.0); Hemoglobin 15.4 g/dL (13.5-17.5); Lymphocytes % (auto) 23.6 % (10.0-50.0); Mean Corpuscular Hemoglobin 30.2 pg (28.0-32.0); Mean Corpuscular Hgb Conc. 33.7 g/dL (32.0-36.0); Mean Corpuscular Volume 89.4 fL (80.0-100.0); Monocytes # (auto) 0.5 10 ^3/uL (0-1.3); Monocytes % (auto) 10.5 % (0.0-12.0); Neutrophils # (auto) 2.8 10 ^3/uL (1.6-8.6); Neutrophils % (auto) 64.6 % (37.0-80.0); Nucleated Red Blood Cells % 0.2 %; Platelet Count (auto) 194 10^3/uL (140-450); Red Blood Cells 5.12 10^6/uL (4.5-5.90); Red Cell Distribution Width 15.8 % (11.8-14.3); White Blood Cell 4.4 10^3/uL (4.4-10.8)
[2024-12-27 07:12] LABS: Anion Gap 12 (5-15); Calcium 9.4 mg/dL (8.7-10.4); Carbon Dioxide 21 mmol/L (20-31); Chloride 101 mmol/L (98-107); Potassium 4.6 mmol/L (3.5-5.1)
[2024-12-27 07:17] LABS: Glucose 84 mg/dL (74-106)
[2024-12-27 07:18] LABS: BUN/Creatinine Ratio 20.2 (10.0-20.0)
[2024-12-27 07:21] LABS: Blood Urea Nitrogen 33 mg/dL (9-23); Sodium 134 mmol/L (136-145)
[2024-12-27 07:55] VITALS: PULSE 40; RESP 17; O2SAT 95
[2024-12-27 09:00] VITALS: BP 104/85; PULSE 40; RESP 17; TEMP 97.3; O2SAT 95
--- NOTE | 2024-12-27 10:17 | DVHINCON2 ---
[facility] 12/27/24 1017: Date Seen: Dec 27, 2024 Referring Physician NEYDA Bsuby Reason for Consultation CHF History of Present Illness This is a 59-year-old male patient who presented to the emergency room with a chief complaint of scrotal swelling. The patient complains of progressive scrotal swelling associated with SOB, PND, ESPINAL, and lower extremity edema. The patient with a known history of HFrEF states he only takes Lasix at home as he is not able to tolerate other medications neither follows-up in the outpatient s etting with a primary insole and outsole splitter. He underwent multiple twelve-lead electrocardiograms x 2 with one revealing a sinus bradycardia rhythm at 47 bpm with an associated first-degree AV block and left bundle branch block. Denies dizziness, syncopal events, visual disturbance, or FUNES. Of note, the patient underwent a cardiac catheterization without catheter-based intervention given no significant coronary artery disease on 05/18/2023. 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 Past Medical History Past medical history reviewed. No other significant than mentioned above. Past Surgical History Hernia repair Family History: Alcoholism G8 FATHER, , Age: 40's - 50, Onset:Unknown Cerebrovascular accident (CVA) G8 MOTHER, , Age: 60 years and older, Onset:50's - 60 Family History Family history reviewed. Social History Admits recent methamphetamine use, quit two months ago. Recent history of tobacco use including a 47 pack-year history. Denies alcohol use. Allergies: Coded Allergies: NO KNOWN ALLERGIES (Unverified , 12/04/24) Home Meds Reported Medications Cephalexin Monohydrate (Cephalexin) 500 Mg Cap, 1 CAP PO TID for 7 Days, #21 12/27/24 Empagliflozin (Jardiance) 10 Mg Tab, 1 TAB PO DAILY for 30 Days, #30 12/05/24 Aspirin (Aspirin Low Dose) 81 Mg Chw, 1 TAB PO DAILY for 30 Days, #30 12/05/24 Atorvastatin Calcium (ATORVASTATIN CALCIUM) 40 Mg Tab, 1 TAB PO DAILY for 30 Days, #30 12/05/24 Furosemide (Furosemide) 40 Mg Tab, 1 TAB PO DAILY for 60 Days, #60 12/05/24 Home Meds Home medications reviewed. Current Medications Current Medications Medications (Trade) Dose Ordered Sig/Negrita Route PRN Reason Start Time Stop Time Status Last Admin Enoxaparin Sodium (Lovenox) 30 mg DAILY SC 12/26/24 10:00 Empaglifozin (Jardiance) 10 mg DAILY PO 12/26/24 10:00 Aspirin 81 mg DAILY PO 12/26/24 10:00 12/26/24 10:33 Furosemide (Lasix Injection) 40 mg DAILY IV 12/26/24 10:00 12/25/24 17:49 DC Nicotine (Nicoderm 7MG/ 24HR) 1 patch DAILY TD 12/26/24 10:00 Dobutamine HCl/ Dextrose 250 ml @ 11.55 mls/ hr [id number] IV 12/27/24 08:30 Review of Systems Constitutional: No symptom reported Ears, Nose, & Throat: No symptom reported Eyes: No symptom reported Neurological: No symptoms reported Pulmonary/Respiratory: SOB Cardiovascular: No symptom reported Gastrointestinal: No symptom reported Genitourinary: Scrotal edema Musculoskeletal: No symptom reported Skin: No symptom reported Psychiatric: No symptom reported Endocrine: No symptom reported Hemotologic/Lymphatic: No symptom reported Vital Signs Vital Signs Date Time Temp Pulse Resp B/P (MAP) Pulse Ox O2 Delivery O2 Flow Rate FiO2 12/27/24 07:55 40 17 95 Room Air* 0 21 12/27/24 05:47 110/79 12/26/24 21:00 98.3 98.3 Physical Exam General Appearance: Cooperative. Well developed. Well nourished. Mild acute respiratory distress Head Exam: Normal inspection Neck Exam: Normal inspection. Non-tender. Normal alignment Pulmonary/Respiratory: Chest non-tender. Crackles to bilateral breath sounds Cardiovascular/Chest: Regular rate and rhythm. S1, S2. Sinus rhythm with LBBB and first-degree AV block. No murmurs. + JVD. Peripheral Pulses: 2+ Radial (R). 2+ Radial (L). 2+ Pedal (R). 2+ Pedal (L) Abdominal Exam: Normal bowel sounds. Soft. Nontender. Ankle Exam: Positive ankle edema Lower extremities: Positive lower extremity edema Genitourinary: Scrotal edema present Neuro/Mental Status: A&O x4. Coherent Thoughts/Psych: Normal thought pattern. Appropriate mood and affect. Slightly anxious Appearance: Mild acute respiratory distress Skin Exam: Normal inspection. Normal color. Warm. Dry Labs/Diagnostic Data Labs Test 12/27/24 06:14 12/26/24 05:14 12/25/24 14:45 12/25/24 11:42 Range/Units White Blood Count 4.4 4.4-10.8 10^3/uL Red Blood Count 5.12 4.5-5.90 10^6/uL Hemoglobin 15.4 13.5-17.5 g/dL Hematocrit 45.7 41.0-53.0 % Mean Corpuscular Volume 89.4 80.0-100.0 fL Mean Corpuscular Hemoglobin 30.2 28.0-32.0 pg Mean Corpuscular Hemoglobin Concent 33.7 32.0-36.0 g/dL Red Cell Distribution Width 15.8 H 11.8-14.3 % Platelet Count 194 140-450 10^3/uL Mean Platelet Volume 7.6 6.9-10.8 fL Neutrophils (%) (Auto) 64.6 37.0-80.0 % Lymphocytes (%) (Auto) 23.6 10.0-50.0 % Monocytes (%) (Auto) 10.5 0.0-12.0 % Eosinophils (%) (Auto) 0.6 0.0-7.0 % Basophils (%) (Auto) 0.7 0.0-2.0 % Neutrophils # (Auto) 2.8 1.6-8.6 10 ^3/uL Lymphocytes # (Auto) 1.0 0.4-5.4 10 ^3/uL Monocytes # (Auto) 0.5 0-1.3 10 ^3/uL Eosinophils # (Auto) 0 0-0.8 10 ^3/uL Basophils # (Auto) 0 0-0.2 10 ^3/uL Nucleated Red Blood Cells 0.2 % Sodium Level 134 L 136-145 mmol/L Potassium Level 4.6 3.5-5.1 mmol/L Chloride Level 101 98-107 mmol/L Carbon Dioxide Level 21 20-31 mmol/L Anion Gap 12 5-15 Blood Urea Nitrogen 33 H 9-23 mg/dL Creatinine 1.63 H 0.700-1.30 mg/dL Glomerular Filtration Rate Calc 48 >90 mL/min BUN/Creatinine Ratio 20.2 H 10.0-20.0 Serum Glucose 84 74-106 mg/dL Calcium Level 9.4 8.7-10.4 mg/dL Magnesium Level 2.0 1.6-2.6 mg/dL Total Bilirubin 2.9 H 0.2-1.0 mg/dL Aspartate Amino Transferase (AST) 63 H 13-40 U/L Alanine Aminotransferase (ALT) 44 H 7-40 U/L Alkaline Phosphatase 97 46-116 U/L B-Type Natriuretic Peptide 3548.88 0-100 pg/mL Total Protein 6.4 5.7-8.2 g/dL Albumin 3.5 3.2-4.8 g/dL Triglycerides Level 57 < 150 mg/dL Cholesterol Level 125 < 200 mg/dL LDL Cholesterol 88 < 100 mg/dL HDL Cholesterol 34 L 40-59 mg/dL Prothrombin Time 12.2 H 9.3-11.8 sec Prothrombin Time INR 1.17 H 0.9-1.15 Activated Partial Thromboplast Time 26.6 24.5-34.5 SEC Troponin I High Sensitivity 15 </=54 ng/L Urine Color Light-yellow Yellow Urine Clarity Clear Clear Urine pH 6.0 5.0-9.0 Urine Specific [place] 1.007 1.001-1.035 Urine Protein Negative Negative Urine Ketones Negative Negative Urine Blood Negative Negative /uL Urine Nitrite Negative Negative Urine Bilirubin Negative Negative Urine Urobilinogen Normal Negative mg/dL Urine Leukocyte Esterase Negative Negative /uL Urine RBC <1 0 - 3 /hpf Urine Microscopic WBC < 1 0-3 /HPF Urine Squamous Epithelial Cells None seen <5 /hpf Urine Bacteria None seen None Seen /hpf Urine Hyaline Casts Few 0 - 2 /lpf Urine Glucose Normal Normal mg/dL Urine Opiates Screen Neg NEGATIVE Urine Fentanyl Screen Neg NEGATIVE Urine Barbiturates Screen Neg NEGATIVE Urine Phencyclidine Screen Neg NEGATIVE Urine Amphetamines Screen Neg NEGATIVE Urine Benzodiazepines Screen Neg NEGATIVE Urine Cocaine Screen Neg NEGATIVE Urine Cannabinoids Screen Neg NEGATIVE Test 12/25/24 11:25 Range/Units POC Glucose 70 70-106 mg/dl Plan/Recommendation (Dr. Mayer) * Acute on Chronic HFrEF, NYHA Class III - Echocardiogram revealed EF 10-15% (09/14/2024 from MR [id number]). Initiate Dobutamine drip for inotropic support. Diuresis as tolerated, lasix drip. Continue Jardiance therapy. Initiate low dose Entresto with parameters, administer when SBP= or > 100 mmHg, when off drips. Strict I&Os, daily weight fluid restrictions. * Drug-induced/dilated/non-ischemic cardiomyopathy - As above * Asymptomatic bradycardia with associated first-degree AV block - Avoid AV ramesh blocking agents. Hold BB, unable to tolerate. Recommend an outpatient event monitor. * Recent Methamphetamine abuse - States he recently quit with latest intake two months ago. -UDS. * NEIL on CKD with hyperkalemia - Consider nephrology consultation if deemed necessary. * Medication noncompliance - advised compliance, follow-ups with Cardiology. Drug abuse cessation. * DVT/VTE prophylaxis - Lovenox. The patient presents with asymptomatic bradycardia, avoid AV ramesh blocking agents. Maximize medical therapy with dobutamine and lasix drips as tolerated, monitor renal function (Lasix drip). The patient may qualify for a BI-V ICD post three months of GDMT for HFrEF. Follow-up with a primary Legislators as outpatient within 3-4 weeks post-discharge. Kindly call if in need to re- consult. Thank you for allowing me to participate in the management of this patient. This medical document was created using an electronic medical record system with voice recognition software and computerized dictation system. Although this document has been carefully reviewed, there might still be some phonetic and typographical errors. Occasional wrong-word or ``sound-alike substitutions may have occurred due to the inherent limitations of voice recognition software. These areas are purely typographical due to imperfections of the software programs and do not reflect any compromise in the patient's medical care. Please read the chart carefully and recognize, using context, where these substitutions have occurred. Plan discussed with: Patient, Other NYHA Physical activity limitations: Class3(Marked) ordinary (activity causes symtoms) Date of Service: Dec 27, 2024 Billing Provider: [facility] Cardiology Common Codes: [id number] INP/OBS CARE (High) KASIE MAYER MD 12/28/24 0934: Date Seen: Dec 27, 2024 Family History: Alcoholism G8 FATHER, , Age: 40's - 50, Onset:Unknown Cerebrovascular accident (CVA) G8 MOTHER, , Age: 60 years and older, Onset:50's - 60 Allergies: Coded Allergies: NO KNOWN ALLERGIES (Unverified , 12/04/24) Home Meds Reported Medications Cephalexin Monohydrate (Cephalexin) 500 Mg Cap, 1 CAP PO TID for 7 Days, #21 12/27/24 Empagliflozin (Jardiance) 10 Mg Tab, 1 TAB PO DAILY for 30 Days, #30 12/05/24 Aspirin (Aspirin Low Dose) 81 Mg Chw, 1 TAB PO DAILY for 30 Days, #30 12/05/24 Atorvastatin Calcium (ATORVASTATIN CALCIUM) 40 Mg Tab, 1 TAB PO DAILY for 30 Days, #30 12/05/24 Furosemide (Furosemide) 40 Mg Tab, 1 TAB PO DAILY for 60 Days, #60 12/05/24 Plan/Recommendation 72yo NICM and drug use. LBBB Tells me he is willing to be compliant with - surendra gleason lasix. He was offered [employer] and will consider it. Please refer to my clinic for follow up after discharge. Wants to be seen by urology for hydrocele? Plan discussed with: Patient Cardiology Common Codes: [id number] INP/OBS CARE (High) ALEXIS LINDSEY Dec 27, 2024 10:17 KASIE MAYER MD Dec 28, 2024 09:34
[2024-12-27 13:00] VITALS: BP 111/83; PULSE 43; RESP 17; TEMP 97.1; O2SAT 96
--- NOTE | 2024-12-27 13:24 | DVHPNRES ---
Progress Note Date Seen: Dec 27, 2024 Resident Creating Document: TYREL MORA RESIDENT Has the PT tested + for MRSA If YES, has PT been informed?: No Medical Necessity Reason Pt with a Central, PICC or Fol: No Subjective Review of Systems This is a 59-year-old male with past medical history of heart failure with reduced ejection fraction of 10%(no reports and record), hydro sella, tobacco and amphetamine abuser, hyperlipidemia, who presented to the ED with chief complaint of bilateral testicular swelling. The patient reported that swelling started overnight and quickly started accumulating significant amount of fluids in the testicular region. The patient also reported associated bilateral lower extremity edema that extends from the foot all the way up to the thighs. The patient also states that he is associated with shortness of breaths and that her sister gave him a tank of oxygen because sometimes he feels out of breath. The patient states that previously they prescribed Entresto, furosemide and Jardiance but he has not been able to take these medications due to low blood pressure. The patient admits that he is only taking furosemide for his swelling. The patient also admitted doing amphetamines three weeks before due to low blood pressure and feeling weak at bed. Patient states that has been clean otherwise. Upon admission, initial CBC was grossly unremarkable and BNP showed hyperkalemia at 5.2 and creatinine 1.60. Initial BNP was 4787, troponins were negative. Initial EKG showed sinus bradycardia with a abnormal T-wave abnormalities in lateral leads. Troponins were negative we ordered an echocardiogram patient was started on furosemide drip. Initial testicular ultrasound showed that testicular torsion was not excluded but a 2nd ultrasound showed no evidence of torsion, epididymitis or orchitis. Patient was admitted for further assessment and management. Patient seen and examined at bedside. Patient is alert and oriented in person, place and time. Patient states that bilateral lower extremity swelling and scrotal swelling are both decreasing and improving compared to admission. Patient has been tolerating furosemide drip, he is on a cardiac diet and monitoring strict in's and out. Patient has been refusing Jardiance, we explained the importance of taking Jardiance 10 mg daily he finally agreed and understood. We will hold Entresto at this time due to NEIL but once creatinine and kidney function start improving we will resume Entresto 0.5 tab daily if blood pressure tolerates meaning systolic blood pressure greater than 100mmhg. We will start also the patient on dobutamine drip to increase inotropic effect in the heart since the last echo showed an LVEF of 10-15%. Patient has no additional concerns at this time and agrees with the plan. ROS Constitutional: Denies weight loss, fever and chills. HEENT: Denies changes in vision and hearing. Respiratory: Denies shortness of breath and cough Cardiovascular: Denies chest discomfort or palpitations GI: Denies abdominal pain, nausea, vomiting and diarrhea. : Reports testicular swelling. Denies dysuria and urinary frequency. Musculoskeletal: Reports bilateral lower extremity swelling. Denies myalgias and joint pain Skin: Denies rash and pruritus. Neurological: Denies dizziness, headache, vision or hearing problems Objective vital signs Vital Sign Date Time Temp Pulse Resp B/P (MAP) Pulse Ox O2 Delivery O2 Flow Rate FiO2 12/27/24 13:00 97.1 43 17 111/83 (92) 96 97.1 12/27/24 07:55 Room Air* 0 21 Total Intake and Output 12/26/24 12/26/24 12/27/24 15:00 23:00 07:00 Intake Total 900 ml Output Total 250 ml Balance -250 ml 900 ml medications Current Medications Medications Dose Ordered Sig/Negrita Route Start Time Stop Time Status Last Admin Dose Admin Acetaminophen/ Hydrocodone Bitart 1 tab Q4HP PRN PO 12/25/24 14:15 12/26/24 20:08 1 TAB Ondansetron HCl 4 mg Q4HP PRN IV 12/25/24 14:15 Enoxaparin Sodium 30 mg DAILY SC 12/26/24 10:00 Acetaminophen 650 mg Q6HP PRN PO 12/25/24 14:15 Morphine Sulfate 2 mg Q4HPRN PRN IV 12/25/24 14:15 Empaglifozin 10 mg DAILY PO 12/26/24 10:00 12/27/24 11:24 10 MG Aspirin 81 mg DAILY PO 12/26/24 10:00 12/27/24 11:16 81 MG Atorvastatin Calcium 40 mg HS PO 12/25/24 22:00 Nicotine 1 patch DAILY TD 12/26/24 10:00 Furosemide 100 mg/ Sodium Chloride 110 ml @ 3.3 mls/hr Q24H IV 12/25/24 17:30 12/27/24 05:47 3.3 MLS/HR Dobutamine HCl/ Dextrose 250 ml @ 11.55 mls/ hr [id number] IV 12/27/24 08:30 Examination Physical Examination General: Patient alert and oriented in person, place and time. Patient following commands. HEENT: Normocephalic, atraumatic, moist mucous membranes Respiratory/pulmonary: There are mild crackles on bilateral lung coker, no wheezes at this time. Currently on 2 L per minute of oxygen through nasal cannula, titrated to 1 L per minute Cardiovascular: Normal heart sounds S1 and S2 with no associated murmurs Abdomen: Abdomen nondistended, there is no pain to palpation in any of the abdominal quadrants, no palpable masses. There is significant scrotal swelling. Extremities: There is significant bilateral lower extremity 2+ pitting edema extending from bilateral foots all the way up to bilateral thighs but improving compare to admission. Peripheral Pulses: 3+ Radial (R). 3+ Radial (L). 3+ Dorsalis pedis (R). 3+ Dorsalis pedis(L) Skin: No rashes or pruritus, there is no sacral edema present at this time. Neurological: Intact cranial nerves with no focal neurologic deficits laboratory and microbiology Laboratory Tests 12/27/24 06:14 Test 12/27/24 06:14 Range/Units Serum Glucose 84 74-106 mg/dL Labs and/or images reviewed: Labs reviewed by me, Image(s) reviewed by me Problem List/Assessment/Plan Problem List/Assessment/Plan Assessment/plan Acute hypoxic respiratory failure likely due to acute decompensated heart failure Acute on chronic systolic heart failure (HFrEF) Acute bilateral scrotal edema likely due to above, ruled out acute testicular torsion -patient has anasarca, bilateral lower extremity 2+ pitting edema extending from bilateral foods all the way up to bilateral thighs. There is significant scrotal edema as well. which has been improving. -initial testicular ultrasound could not exclude testicular torsion but 2nd testicular ultrasound showed no evidence of torsion, epididymitis or orchitis. -EKG showed sinus bradycardia with a abnormal T-waves in lateral leads -troponins came back negative -BNP was 4787 -continue furosemide drip -continue Jardiance 10 mg daily -Hold interest due to low BP and NEIL -monitor electrolytes closely -patient is currently on 2 L of oxygen through nasal cannula, we titrated down to 1 L we will monitor saturations. -ordered echocardiogram -strict in's and out -cardiac diet -Start dobutamine drip -Cardiology on board NEIL likely due to vasomotor nephropathy in the setting of decompensated heart failure -creatinine 1.60, BUN 29 -avoid nephrotoxic drugs -patient is volume overload, on furosemide drip -Hold Entresto at this time until kidney function improves Acute hyperkalemia -potassium 5.2 -gave 10 units of insulin, sodium bicarbonate and dextrose -we will monitor potassium and other electrolytes closely. Acute transaminitis -AST 63, ALT 44 -Monitor liver enzymes Dyslipidemia -ordered lipid panel -continue atorvastatin 40 mg daily DVT prophylaxis -enoxaparin 30 mg SC daily. Plan discussed with Dr. Whitney Plan discussed with: Patient, Other (Nurse) My Orders My Orders Orders - TYREL MORA Procedure Category Date Status Time Electrocardigram EKG 12/26/24 Logged 14:53 Dobutamine 1000mcg/Ml PHA 12/27/24 In Process (Dobutrex) 08:30 Addendum Addendum Addendum I was physically present for the hill portions of the service provided to patient by THE RESIDENT. I have reviewed the documentation, discussed the case with resident and agree with the resident's documentation except as noted. Also the patient's clinical case was discussed with the patient's nurse. This medical document was created using an electronic medical record system with computerized dictation system. Although this document has been carefully reviewed, there might still be some phonetic and typographical errors. These areas are purely typographical due to imperfections of the software programs, and do not reflect any compromise in the patient's medical care. Late signature. Date of Service: Dec 27, 2024 Billing Provider: LAURIE WHITNEY MD Common Visit Codes: [id number] INP/OBS CARE(HIGH) TYREL MORA Dec 27, 2024 13:24 LAURIE WHITNEY MD Dec 28, 2024 08:25
[2024-12-27] MEDS: DOBUTamine 1000MCG/ML 250 ML IV SCH (13:28)
--- NOTE | 2024-12-27 13:29 | ECG ---
[facility] Test Date: 2024-12-26 Test Time: 15:27:49 Pat Name: DALLIN RINCON Department: Room: 0272T Gender: M Cnc Grinder: [birth year] : 1965 Requested By: TYREL ERNTS Order Number: [id number] Reading MD: Eliot Calloway Measurements Intervals [place] Rate: 47 P: 57 MS: 230 QRS: 14 QRSD: 170 T: 54 QT: 557 QTc: 493 Interpretive Statements Sinus bradycardia Ventricular premature complex Prolonged MS interval Probable left atrial enlargement Left bundle branch block Electronically Signed On 12-28-2024 15:52:13 PDT by Eliot Calloway Please click the below link to view image of tracing.
[2024-12-27 17:00] VITALS: BP 111/51; PULSE 45; TEMP 97.1; O2SAT 98
[2024-12-27 20:00] VITALS: PULSE 47
[2024-12-27 20:48] VITALS: BP 133/61; PULSE 48; RESP 18; TEMP 98.2; O2SAT 98
[2024-12-28] VITALS (11 sets, daily range): BP systolic 111–116; BP diastolic 57–73; PULSE 33–57; RESP 17–20; TEMP 97.8–98.8; O2SAT 93–97
--- NOTE | 2024-12-28 07:09 | DVHPNRES ---
Progress Note Date Seen: Dec 28, 2024 Resident Creating Document: TYREL MORA RESIDENT Has the PT tested + for MRSA If YES, has PT been informed?: No Medical Necessity Reason Pt with a Central, PICC or Fol: No Subjective Review of Systems This is a 59-year-old male with past medical history of heart failure with reduced ejection fraction of 10%(no reports and record), hydro sella, tobacco and amphetamine abuser, hyperlipidemia, who presented to the ED with chief complaint of bilateral testicular swelling. The patient reported that swelling started overnight and quickly started accumulating significant amount of fluids in the testicular region. The patient also reported associated bilateral lower extremity edema that extends from the foot all the way up to the thighs. The patient also states that he is associated with shortness of breaths and that her sister gave him a tank of oxygen because sometimes he feels out of breath. The patient states that previously they prescribed Entresto, furosemide and Jardiance but he has not been able to take these medications due to low blood pressure. The patient admits that he is only taking furosemide for his swelling. The patient also admitted doing amphetamines three weeks before due to low blood pressure and feeling weak at bed. Patient states that has been clean otherwise. Upon admission, initial CBC was grossly unremarkable and BNP showed hyperkalemia at 5.2 and creatinine 1.60. Initial BNP was 4787, troponins were negative. Initial EKG showed sinus bradycardia with a abnormal T-wave abnormalities in lateral leads. Troponins were negative we ordered an echocardiogram patient was started on furosemide drip. Initial testicular ultrasound showed that testicular torsion was not excluded but a 2nd ultrasound showed no evidence of torsion, epididymitis or orchitis. Patient was admitted for further assessment and management. Patient seen and examined at bedside. Patient is alert and oriented in person, place and time. Patient states that he is feeling much better compared to admission. But patient still having bilateral lower extremity swelling and testicular swelling as well which is slightly improving compared to previous days. Patient is currently on furosemide drip and dobutamine drip, tolerating without complications. Patient still need more diuresis. Cardiology talked to the patient and explained the importance of medication adherence and that he might need and qualify for both pacemaker and defibrillator placement but he needs to be on directed medical therapy, which patient is not compliant with the medications. We will continue current medical therapy at this time. ROS: Constitutional: Denies weight loss, fever and chills. HEENT: Denies changes in vision and hearing. Respiratory: Denies shortness of breath and cough Cardiovascular: Denies chest discomfort or palpitations GI: Denies abdominal pain, nausea, vomiting and diarrhea. : Reports scrotal edema. Denies dysuria and urinary frequency. Musculoskeletal: Still reports significant bilateral lower extremity swelling. Denies myalgias and joint pain Skin: Denies rash and pruritus. Neurological: Denies dizziness, headache, vision or hearing problems Objective vital signs Vital Sign Date Time Temp Pulse Resp B/P (MAP) Pulse Ox O2 Delivery O2 Flow Rate FiO2 12/28/24 06:51 151/71 12/28/24 05:00 98.3 46 20 96 98.3 12/27/24 20:00 Room Air* 0 21 Total Intake and Output 12/27/24 12/27/24 12/28/24 15:00 23:00 07:00 Intake Total 1800 ml 463.9 ml Output Total 1100 ml 1200 ml Balance 700 ml -736.1 ml medications Current Medications Medications Dose Ordered Sig/Negrita Route Start Time Stop Time Status Last Admin Dose Admin Acetaminophen/ Hydrocodone Bitart 1 tab Q4HP PRN PO 12/25/24 14:15 12/26/24 20:08 1 TAB Ondansetron HCl 4 mg Q4HP PRN IV 12/25/24 14:15 Enoxaparin Sodium 30 mg DAILY SC 12/26/24 10:00 Acetaminophen 650 mg Q6HP PRN PO 12/25/24 14:15 Morphine Sulfate 2 mg Q4HPRN PRN IV 12/25/24 14:15 Empaglifozin 10 mg DAILY PO 12/26/24 10:00 12/27/24 11:24 10 MG Aspirin 81 mg DAILY PO 12/26/24 10:00 12/27/24 11:16 81 MG Atorvastatin Calcium 40 mg HS PO 12/25/24 22:00 Nicotine 1 patch DAILY TD 12/26/24 10:00 Furosemide 100 mg/ Sodium Chloride 110 ml @ 3.3 mls/hr Q24H IV 12/25/24 17:30 12/28/24 06:51 3.3 MLS/HR Dobutamine HCl/ Dextrose 250 ml @ 11.55 mls/ hr [id number] IV 12/27/24 08:30 12/27/24 13:28 11.55 MLS/HR Examination Physical Examination General: Patient alert and oriented in person, place and time. Patient following commands. HEENT: Normocephalic, atraumatic, moist mucous membranes Respiratory/pulmonary: There are mild crackles on bilateral lung coker, no wheezes at this time. Currently on room air sat 96% Cardiovascular: Normal heart sounds S1 and S2 with no associated murmurs Abdomen: Abdomen nondistended, there is no pain to palpation in any of the abdominal quadrants, no palpable masses. There is significant scrotal swelling. Extremities: There is significant bilateral lower extremity 2+ pitting edema extending from bilateral foots all the way up to bilateral thighs but improving compare to admission. Peripheral Pulses: 3+ Radial (R). 3+ Radial (L). 3+ Dorsalis pedis (R). 3+ Dorsalis pedis(L) Skin: No rashes or pruritus, there is no sacral edema present at this time. Neurological: Intact cranial nerves with no focal neurologic deficits laboratory and microbiology Laboratory Tests 12/27/24 06:14 Test 12/28/24 05:53 Range/Units Serum Glucose Pending Labs and/or images reviewed: Labs reviewed by me, Image(s) reviewed by me Problem List/Assessment/Plan Problem List/Assessment/Plan Assessment/plan Acute hypoxic respiratory failure likely due to acute decompensated heart failure Acute on chronic systolic heart failure (HFrEF) Acute bilateral scrotal edema likely due to above, ruled out acute testicular torsion -patient has anasarca, bilateral lower extremity 2+ pitting edema extending from bilateral foods all the way up to bilateral thighs. There is significant scrotal edema as well. which has been improving. -initial testicular ultrasound could not exclude testicular torsion but 2nd testicular ultrasound showed no evidence of torsion, epididymitis or orchitis. -EKG showed sinus bradycardia with a abnormal T-waves in lateral leads -troponins came back negative -BNP was 4787 -continue furosemide drip -continue Jardiance 10 mg daily -Hold Entresto due to low BP and NEIL -monitor electrolytes closely -patient is currently on 2 L of oxygen through nasal cannula, we titrated down to 1 L we will monitor saturations. -ordered echocardiogram -strict in's and out -cardiac diet -continue dobutamine drip -Cardiology on board NEIL likely due to vasomotor nephropathy in the setting of decompensated heart failure -creatinine 1.60, BUN 29 -avoid nephrotoxic drugs -patient is volume overload, on furosemide drip -Hold Entresto at this time until kidney function improves Acute hyperkalemia -potassium 5.2 -gave 10 units of insulin, sodium bicarbonate and dextrose -we will monitor potassium and other electrolytes closely. Acute transaminitis -AST 63, ALT 44 -Monitor liver enzymes Dyslipidemia -ordered lipid panel -continue atorvastatin 40 mg daily DVT prophylaxis -enoxaparin 30 mg SC daily. Plan discussed with Dr. Whitney Plan discussed with: Patient, Other (RN) My Orders My Orders Orders - TYREL MORA Procedure Category Date Status Time Dobutamine 1000mcg/Ml PHA 12/27/24 In Process (Dobutrex) 08:30 Basic Metabolic Panel LAB 12/28/24 In Process 04:00 Magnesium LAB 12/28/24 In Process 04:00 Addendum Addendum Addendum I was physically present for the hill portions of the service provided to patient by THE RESIDENT. I have reviewed the documentation, discussed the case with resident and agree with the resident's documentation except as noted. Also the patient's clinical case was discussed with the patient's nurse. This medical document was created using an electronic medical record system with computerized dictation system. Although this document has been carefully reviewed, there might still be some phonetic and typographical errors. These areas are purely typographical due to imperfections of the software programs, and do not reflect any compromise in the patient's medical care. Late signature. Date of Service: Dec 28, 2024 Billing Provider: LAURIE WHITNEY MD Common Visit Codes: [id number] INP/OBS CARE(HIGH) TYREL MORA RESIDENT Dec 28, 2024 07:09 LAURIE WHITNEY MD December 30, 2024 04:41
[2024-12-28 07:38] LABS: Anion Gap 11 (5-15); Calcium 8.9 mg/dL (8.7-10.4); Carbon Dioxide 21 mmol/L (20-31); Chloride 105 mmol/L (98-107); Potassium 3.8 mmol/L (3.5-5.1); Sodium 137 mmol/L (136-145)
[2024-12-28 07:44] LABS: Glucose 83 mg/dL (74-106)
[2024-12-28 07:45] LABS: Magnesium 2.1 mg/dL (1.6-2.6)
[2024-12-28 07:47] LABS: Blood Urea Nitrogen 37 mg/dL (9-23)
[2024-12-29] VITALS (9 sets, daily range): BP systolic 110–137; BP diastolic 57–82; PULSE 45–88; RESP 14–18; TEMP 97–98.9; O2SAT 95–98
[2024-12-29] MEDS: DOBUTamine 1000MCG/ML 250 ML IV SCH (05:45)
--- NOTE | 2024-12-29 07:46 | DVHPNRES ---
Progress Note Date Seen: December 29, 2024 Resident Creating Document: TYREL MORA RESIDENT Has the PT tested + for MRSA If YES, has PT been informed?: No Medical Necessity Reason Pt with a Central, PICC or Fol: No Subjective Review of Systems This is a 59-year-old male with past medical history of heart failure with reduced ejection fraction of 10%(no reports and record), hydro sella, tobacco and amphetamine abuser, hyperlipidemia, who presented to the ED with chief complaint of bilateral testicular swelling. The patient reported that swelling started overnight and quickly started accumulating significant amount of fluids in the testicular region. The patient also reported associated bilateral lower extremity edema that extends from the foot all the way up to the thighs. The patient also states that he is associated with shortness of breaths and that her sister gave him a tank of oxygen because sometimes he feels out of breath. The patient states that previously they prescribed Entresto, furosemide and Jardiance but he has not been able to take these medications due to low blood pressure. The patient admits that he is only taking furosemide for his swelling. The patient also admitted doing amphetamines three weeks before due to low blood pressure and feeling weak at bed. Patient states that has been clean otherwise. Upon admission, initial CBC was grossly unremarkable and BNP showed hyperkalemia at 5.2 and creatinine 1.60. Initial BNP was 4787, troponins were negative. Initial EKG showed sinus bradycardia with a abnormal T-wave abnormalities in lateral leads. Troponins were negative we ordered an echocardiogram patient was started on furosemide drip. Initial testicular ultrasound showed that testicular torsion was not excluded but a 2nd ultrasound showed no evidence of torsion, epididymitis or orchitis. Patient was admitted for further assessment and management. Patient seen and examined at bedside. Patient is alert and oriented in person, place and time. Patient still having bilateral lower extremity swelling 2+ pitting edema which has significantly improved compared to admission. Patient still having scrotal swelling. We will increase dobutamine to 5.0 mcg/kg per minute and we will continue furosemide drip. Patient is having good diuresis and we are monitoring strict in's and out. Patient is also being compliant with Jardiance 10 mg daily and other medications. Patient still not at baseline at this time but has no additional complaints or symptoms aside from peripheral edema. ROS: Constitutional: Denies weight loss, fever and chills. HEENT: Denies changes in vision and hearing. Respiratory: Denies shortness of breath and cough Cardiovascular: Denies chest discomfort or palpitations GI: Denies abdominal pain, nausea, vomiting and diarrhea. : Reports significant testicular swelling. Denies dysuria and urinary frequency. Musculoskeletal: Still reports bilateral lower extremity swelling. Denies myalgias and joint pain Skin: Denies rash and pruritus. Neurological: Denies dizziness, headache, vision or hearing problems Objective vital signs Vital Sign Date Time Temp Pulse Resp B/P (MAP) Pulse Ox O2 Delivery O2 Flow Rate FiO2 12/29/24 07:05 124/71 12/29/24 05:00 98.0 55 18 97 98.0 12/28/24 19:57 Nasal Cannula* 2 28 Total Intake and Output 12/28/24 12/28/24 12/29/24 15:00 23:00 07:00 Intake Total 180 ml 1760 ml 900 ml Output Total 600 ml 1350 ml 1000 ml Balance -420 ml 410 ml -100 ml medications Current Medications Medications Dose Ordered Sig/Negrita Route Start Time Stop Time Status Last Admin Dose Admin Acetaminophen/ Hydrocodone Bitart 1 tab Q4HP PRN PO 12/25/24 14:15 12/26/24 20:08 1 TAB Ondansetron HCl 4 mg Q4HP PRN IV 12/25/24 14:15 Enoxaparin Sodium 30 mg DAILY SC 12/26/24 10:00 Acetaminophen 650 mg Q6HP PRN PO 12/25/24 14:15 Morphine Sulfate 2 mg Q4HPRN PRN IV 12/25/24 14:15 Empaglifozin 10 mg DAILY PO 12/26/24 10:00 12/28/24 09:10 10 MG Aspirin 81 mg DAILY PO 12/26/24 10:00 12/28/24 09:10 81 MG Atorvastatin Calcium 40 mg HS PO 12/25/24 22:00 Nicotine 1 patch DAILY TD 12/26/24 10:00 Furosemide 100 mg/ Sodium Chloride 110 ml @ 3.3 mls/hr Q24H IV 12/25/24 17:30 12/28/24 06:51 3.3 MLS/HR Dobutamine HCl/ Dextrose 250 ml @ 23.1 mls/hr [id number] IV 12/29/24 05:45 12/29/24 07:05 23.1 MLS/HR Examination Physical Examination General: Patient alert and oriented in person, place and time. Patient following commands. HEENT: Normocephalic, atraumatic, moist mucous membranes Respiratory/pulmonary: There are mild crackles on bilateral lung coker, no wheezes at this time. Currently on room air sat 96% Cardiovascular: Normal heart sounds S1 and S2 with no associated murmurs Abdomen: Abdomen nondistended, there is no pain to palpation in any of the abdominal quadrants, no palpable masses. There is significant scrotal swelling. Extremities: There is significant bilateral lower extremity 2+ pitting edema extending from bilateral foots all the way up to bilateral thighs but improving compare to admission. Peripheral Pulses: 3+ Radial (R). 3+ Radial (L). 3+ Dorsalis pedis (R). 3+ Dorsalis pedis(L) Skin: No rashes or pruritus, there is no sacral edema present at this time. Neurological: Intact cranial nerves with no focal neurologic deficits laboratory and microbiology Laboratory Tests 12/28/24 05:53 12/27/24 06:14 Test 12/28/24 05:53 Range/Units Serum Glucose 83 74-106 mg/dL Labs and/or images reviewed: Labs reviewed by me, Image(s) reviewed by me Problem List/Assessment/Plan Problem List/Assessment/Plan Assessment/plan Acute hypoxic respiratory failure likely due to acute decompensated heart failure Acute on chronic systolic heart failure (HFrEF) Acute bilateral scrotal edema likely due to above, ruled out acute testicular torsion -patient has anasarca, bilateral lower extremity 2+ pitting edema extending from bilateral foods all the way up to bilateral thighs. There is significant scrotal edema as well. which has been improving. -initial testicular ultrasound could not exclude testicular torsion but 2nd testicular ultrasound showed no evidence of torsion, epididymitis or orchitis. -EKG showed sinus bradycardia with a abnormal T-waves in lateral leads -troponins came back negative -BNP was 4787 -continue furosemide drip -continue Jardiance 10 mg daily -Hold Entresto due to low BP and NEIL -monitor electrolytes closely -patient is currently on 2 L of oxygen through nasal cannula, we titrated down to 1 L we will monitor saturations. -ordered echocardiogram -strict in's and out -cardiac diet -Increase dobutamine drip to 5.0 mcg/kg/min -Cardiology on board NEIL likely due to vasomotor nephropathy in the setting of decompensated heart failure -creatinine 1.60, BUN 29 -avoid nephrotoxic drugs -patient is volume overload, on furosemide drip -Hold Entresto at this time until kidney function improves Acute hyperkalemia; resolved -potassium was 5.2 -gave 10 units of insulin, sodium bicarbonate and dextrose -we will monitor potassium and other electrolytes closely. Acute transaminitis -AST 63, ALT 44 -Monitor liver enzymes Dyslipidemia -ordered lipid panel -continue atorvastatin 40 mg daily DVT prophylaxis -enoxaparin 30 mg SC daily. Plan discussed with Dr. Whitney Plan discussed with: Patient, Other (RN) My Orders My Orders Orders - TYREL MORA Procedure Category Date Status Time Complete Blood Count LAB 12/29/24 Logged 05:38 Basic Metabolic Panel LAB 12/29/24 Logged 05:38 Dobutamine 1000mcg/Ml PHA 12/29/24 In Process (Dobutrex) 05:45 Addendum Addendum Addendum I was physically present for the hill portions of the service provided to patient by THE RESIDENT. I have reviewed the documentation, discussed the case with resident and agree with the resident's documentation except as noted. Also the patient's clinical case was discussed with the patient's nurse. This medical document was created using an electronic medical record system with computerized dictation system. Although this document has been carefully reviewed, there might still be some phonetic and typographical errors. These areas are purely typographical due to imperfections of the software programs, and do not reflect any compromise in the patient's medical care. Late signature. Date of Service: December 29, 2024 Billing Provider: LAURIE WHITNEY MD Common Visit Codes: [id number] INP/OBS CARE(HIGH) TYREL MORA RESIDENT December 29, 2024 07:46 LAURIE WHITNEY MD December 30, 2024 04:44
[2024-12-29 10:04] LABS: Chloride 103 mmol/L (98-107); Potassium 3.4 mmol/L (3.5-5.1); Sodium 139 mmol/L (136-145)
[2024-12-29 10:05] LABS: Anion Gap 6 (5-15); Calcium 9.1 mg/dL (8.7-10.4); Carbon Dioxide 30 mmol/L (20-31)
[2024-12-29 10:06] LABS: Basophils # (auto) 0 10 ^3/uL (0-0.2); Basophils % (auto) 0.7 % (0.0-2.0); Eosinophils # (auto) 0.1 10 ^3/uL (0-0.8); Eosinophils % (auto) 1.8 % (0.0-7.0); Hematocrit 42.4 % (41.0-53.0); Hemoglobin 14.1 g/dL (13.5-17.5); Lymphocytes # (auto) 0.7 10 ^3/uL (0.4-5.4); Mean Corpuscular Hemoglobin 29.7 pg (28.0-32.0); Mean Corpuscular Hgb Conc. 33.2 g/dL (32.0-36.0); Mean Corpuscular Volume 89.5 fL (80.0-100.0); Monocytes # (auto) 0.4 10 ^3/uL (0-1.3); Monocytes % (auto) 13.1 % (0.0-12.0); Neutrophils # (auto) 2.1 10 ^3/uL (1.6-8.6); Neutrophils % (auto) 64.4 % (37.0-80.0); Nucleated Red Blood Cells % 0.2 %; Platelet Count (auto) 157 10^3/uL (140-450); Red Blood Cells 4.74 10^6/uL (4.5-5.90); Red Cell Distribution Width 15.7 % (11.8-14.3); White Blood Cell 3.3 10^3/uL (4.4-10.8)
[2024-12-29 10:10] LABS: BUN/Creatinine Ratio 21.4 (10.0-20.0); Glucose 82 mg/dL (74-106)
[2024-12-29 10:11] LABS: Blood Urea Nitrogen 31 mg/dL (9-23)
[2024-12-29] MEDS: POTASSIUM EFFERVESENT TAB 25 MEQ PO ONE (14:34)
[2024-12-30 01:00] VITALS: BP 115/64; PULSE 45; RESP 17; TEMP 97.4; O2SAT 96
[2024-12-30 05:00] VITALS: BP 98/57; PULSE 45; RESP 17; TEMP 97.5; O2SAT 95
[2024-12-30 07:24] LABS: Basophils # (auto) 0 10 ^3/uL (0-0.2); Basophils % (auto) 0.7 % (0.0-2.0); Eosinophils # (auto) 0.1 10 ^3/uL (0-0.8); Eosinophils % (auto) 2.5 % (0.0-7.0); Hematocrit 42.3 % (41.0-53.0); Hemoglobin 14.1 g/dL (13.5-17.5); Lymphocytes # (auto) 0.8 10 ^3/uL (0.4-5.4); Lymphocytes % (auto) 24.7 % (10.0-50.0); Mean Corpuscular Hemoglobin 29.8 pg (28.0-32.0); Mean Corpuscular Hgb Conc. 33.4 g/dL (32.0-36.0); Monocytes # (auto) 0.5 10 ^3/uL (0-1.3); Monocytes % (auto) 14.4 % (0.0-12.0); Neutrophils % (auto) 57.7 % (37.0-80.0); Nucleated Red Blood Cells % 0.2 %; Platelet Count (auto) 158 10^3/uL (140-450); Red Blood Cells 4.75 10^6/uL (4.5-5.90); Red Cell Distribution Width 15.5 % (11.8-14.3); White Blood Cell 3.4 10^3/uL (4.4-10.8)
[2024-12-30 07:25] LABS: Chloride 105 mmol/L (98-107); Potassium 3.8 mmol/L (3.5-5.1); Sodium 140 mmol/L (136-145)
[2024-12-30 07:26] LABS: Anion Gap 9 (5-15); Calcium 8.8 mg/dL (8.7-10.4); Carbon Dioxide 26 mmol/L (20-31)
[2024-12-30 07:31] LABS: Glucose 85 mg/dL (74-106)
[2024-12-30 07:32] LABS: BUN/Creatinine Ratio 19.6 (10.0-20.0)
[2024-12-30 07:38] LABS: Blood Urea Nitrogen 27 mg/dL (9-23)
[2024-12-30] MEDS: SPIRONOLACTONE 25 MG TAB PO SCH (07:45)
[2024-12-30 08:00] VITALS: PULSE 39
[2024-12-30 09:00] VITALS: BP 102/69; PULSE 45; RESP 16; TEMP 97.8; O2SAT 92
[2024-12-30] MEDS ORDERED: FURO40TA4 PO (12:53)
[2024-12-30] MEDS ORDERED: POTA-36 PO (12:53)
[2024-12-30] MEDS ORDERED: EMPA1TAB PO (12:53)
[2024-12-30] MEDS ORDERED: SPIR25TA8 PO (12:53)
[2024-12-30] MEDS ORDERED: SACU1TAB PO (12:53)
[2024-12-30 13:00] VITALS: BP 107/67; PULSE 51; RESP 20; TEMP 98; O2SAT 95
--- NOTE | 2024-12-30 13:02 | DVHDSRES ---
Discharge Summary Date of Admission Resident Creating Document: TYREL MORA RESIDENT Dec 25, 2024 at 14:03 Date of Discharge: December 30, 2024 Admitting Diagnosis Severe bilateral lower extremity and scrotal edema Wounds: No wounds present at this time. Labs/Diagnostic Data: Laboratory Results Test 12/30/24 06:50 12/28/24 05:53 12/26/24 05:14 12/25/24 14:45 White Blood Count 3.4 10^3/uL (4.4-10.8) Red Blood Count 4.75 10^6/uL (4.5-5.90) Hemoglobin 14.1 g/dL (13.5-17.5) Hematocrit 42.3 % (41.0-53.0) Mean Corpuscular Volume 89.0 fL (80.0-100.0) Mean Corpuscular Hemoglobin 29.8 pg (28.0-32.0) Mean Corpuscular Hemoglobin Concent 33.4 g/dL (32.0-36.0) Red Cell Distribution Width 15.5 % (11.8-14.3) Platelet Count 158 10^3/uL (140-450) Mean Platelet Volume 7.3 fL (6.9-10.8) Neutrophils (%) (Auto) 57.7 % (37.0-80.0) Lymphocytes (%) (Auto) 24.7 % (10.0-50.0) Monocytes (%) (Auto) 14.4 % (0.0-12.0) Eosinophils (%) (Auto) 2.5 % (0.0-7.0) Basophils (%) (Auto) 0.7 % (0.0-2.0) Neutrophils # (Auto) 2.0 10 ^3/uL (1.6-8.6) Lymphocytes # (Auto) 0.8 10 ^3/uL (0.4-5.4) Monocytes # (Auto) 0.5 10 ^3/uL (0-1.3) Eosinophils # (Auto) 0.1 10 ^3/uL (0-0.8) Basophils # (Auto) 0 10 ^3/uL (0-0.2) Nucleated Red Blood Cells 0.2 % Sodium Level 140 mmol/L (136-145) Potassium Level 3.8 mmol/L (3.5-5.1) Chloride Level 105 mmol/L (98-107) Carbon Dioxide Level 26 mmol/L (20-31) Anion Gap 9 (5-15) Blood Urea Nitrogen 27 mg/dL (9-23) Creatinine 1.38 mg/dL (0.700-1.30) Glomerular Filtration Rate Calc 59 mL/min (>90) BUN/Creatinine Ratio 19.6 (10.0-20.0) Serum Glucose 85 mg/dL (74-106) Calcium Level 8.8 mg/dL (8.7-10.4) Magnesium Level 2.1 mg/dL (1.6-2.6) Total Bilirubin 2.9 mg/dL (0.2-1.0) Aspartate Amino Transferase (AST) 63 U/L (13-40) Alanine Aminotransferase (ALT) 44 U/L (7-40) Alkaline Phosphatase 97 U/L (46-116) B-Type Natriuretic Peptide 3548.88 pg/mL (0-100) Total Protein 6.4 g/dL (5.7-8.2) Albumin 3.5 g/dL (3.2-4.8) Triglycerides Level 57 mg/dL (< 150) Cholesterol Level 125 mg/dL (< 200) LDL Cholesterol 88 mg/dL (< 100) HDL Cholesterol 34 mg/dL (40-59) Prothrombin Time 12.2 sec (9.3-11.8) Prothrombin Time INR 1.17 (0.9-1.15) Activated Partial Thromboplast Time 26.6 SEC (24.5-34.5) Troponin I High Sensitivity 15 ng/L (</=54) Test 12/25/24 11:42 12/25/24 11:25 Urine Color Light-yellow (Yellow) Urine Clarity Clear (Clear) Urine pH 6.0 (5.0-9.0) Urine Specific Given 1.007 (1.001-1.035) Urine Protein Negative (Negative) Urine Ketones Negative (Negative) Urine Blood Negative /uL (Negative) Urine Nitrite Negative (Negative) Urine Bilirubin Negative (Negative) Urine Urobilinogen Normal mg/dL (Negative) Urine Leukocyte Esterase Negative /uL (Negative) Urine RBC <1 /hpf (0 - 3) Urine Microscopic WBC < 1 /HPF (0-3) Urine Squamous Epithelial Cells None seen /hpf (<5) Urine Bacteria None seen /hpf (None Seen) Urine Hyaline Casts Few /lpf (0 - 2) Urine Glucose Normal mg/dL (Normal) Urine Opiates Screen Neg (NEGATIVE) Urine Fentanyl Screen Neg (NEGATIVE) Urine Barbiturates Screen Neg (NEGATIVE) Urine Phencyclidine Screen Neg (NEGATIVE) Urine Amphetamines Screen Neg (NEGATIVE) Urine Benzodiazepines Screen Neg (NEGATIVE) Urine Cocaine Screen Neg (NEGATIVE) Urine Cannabinoids Screen Neg (NEGATIVE) POC Glucose 70 mg/dl (70-106) Other Laboratory Tests 12/30/24 06:50 Brief Hx & Hospital Course: This is a 59-year-old male with past medical history of heart failure with reduced ejection fraction of 10%(no reports and record), hydro sella, tobacco and amphetamine abuser, hyperlipidemia, who presented to the ED with chief complaint of bilateral testicular swelling. The patient reported that swelling started overnight and quickly started accumulating significant amount of fluids in the testicular region. The patient also reported associated bilateral lower extremity edema that extends from the foot all the way up to the thighs. The patient also states that he is associated with shortness of breaths and that her sister gave him a tank of oxygen because sometimes he feels out of breath. The patient states that previously they prescribed Entresto, furosemide and Jardiance but he has not been able to take these medications due to low blood pressure. The patient admits that he is only taking furosemide for his swelling. The patient also admitted doing amphetamines three weeks before due to low blood pressure and feeling weak at bed. Patient states that has been clean otherwise. Upon admission, initial CBC was grossly unremarkable and BNP showed hyperkalemia at 5.2 and creatinine 1.60. Initial BNP was 4787, troponins were negative. Initial EKG showed sinus bradycardia with a abnormal T-wave abnormalities in lateral leads. Troponins were negative we ordered an echocardiogram patient was started on furosemide drip. Initial testicular ultrasound showed that testicular torsion was not excluded but a 2nd ultrasound showed no evidence of torsion, epididymitis or orchitis. Patient was started on furosemide drip and later on dobutamine drip at 2.5 mcg/kg per minute. During hospitalization stay dobutamine drip was increased to 5 mcg/kg per minute and patient tolerated fine. Today, patient was seen and examined at bedside. Patient is reporting significant improvement on bilateral lower extremity swelling as well as scrotal swelling but patient states that they are still mild swelling in the scrotum at this time. We consulted IR for possible drainage but according to ultrasound fluid was not enough at this time. We explained to the patient that no drainage was going to be able to be performed at this time and that we need to control heart failure strictly with medication adherence to be able to prevent further swelling. We will discharge the patient on Entresto 0.5 tab b.i.d. only if the systolic blood pressure is above 105 mmHg. Spironolactone 25 mg daily, empagliflozin 10 mg daily and furosemide 40 mg daily. We will also send potassium 10 mEq daily to prevent hypokalemia. Patient agreed and understood the plan. ROS: Constitutional: Denies weight loss, fever and chills. HEENT: Denies changes in vision and hearing. Respiratory: Denies shortness of breath and cough Cardiovascular: Denies chest discomfort or palpitations GI: Denies abdominal pain, nausea, vomiting and diarrhea. : Reports mild to moderate scrotal swelling. Denies dysuria and urinary frequency. Musculoskeletal: Reports very mild pedal edema 1+ bilaterally that has significantly improved compared to admission. Denies myalgias and joint pain Skin: Denies rash and pruritus. Neurological: Denies dizziness, headache, vision or hearing problems Physical Examination on discharge: General: Patient alert and oriented in person, place and time. Patient following commands. HEENT: Normocephalic, atraumatic, moist mucous membranes Respiratory/pulmonary: Clear lungs bilaterally, no associated crackles or wheezes. Cardiovascular: Normal heart sounds S1 and S2 with no associated murmurs Abdomen: Abdomen nondistended, there is no pain to palpation in any of the abdominal quadrants, no palpable masses. There is mild to moderate scrotal swelling. Extremities: There is very mild bilateral pedal 1+ edema. Significantly improved compared to admission. Peripheral Pulses: 3+ Radial (R). 3+ Radial (L). 3+ Dorsalis pedis (R). 3+ Dorsalis pedis(L) Skin: No rashes or pruritus, there is no sacral edema present at this time. Neurological: Intact cranial nerves with no focal neurologic deficits Discussed with Dr. Whitney Consults/Reason for consult Cardiology for decompensated heart failure; urology for suspected testicular torsion Operations or Procedures XY CHEST TWO VIEWS ROUTINE, HISTORY: sob COMPARISON: None None TECHNICAL DATA: 1 view of the chest was obtained. FINDINGS: Lines and tubes: None Cardiomediastinal silhouette: normal Pulmonary vasculature: normal Lung expansion: normal Lung airspace: Patchy bibasilar airspace opacities with trace pleural effusion. Lung interstitium: normal Pleura: Pneumothorax: no Bones: Unremarkable Other: no IMPRESSION: Patchy bibasilar airspace opacities with trace pleural effusion. CLINICAL INFORMATION: Pain. TECHNIQUE: Grayscale sonographic imaging of the testicles and scrotal contents was performed , assisted by color doppler technique. Duplex doppler ultrasound of both testicles was performed. COMPARISON: US TESTICULAR ULTRASOUND on DOS: 12/06/24 FINDINGS: The right testicle measures 2.5 x 2.1 x 2.9 cm, within normal limits. Unremarkable echogenicity of the right testicle. Peripheral blood flow demonstrated. Limited flow demonstrated centrally. Unremarkable epididymis. Moderate to large right hydrocele. Small calcification along the periphery of the hydrocele measuring up to 0.4 cm. The left testicle measures 1.4 x 2.8 x 3.1 cm, within normal limits. Heterogeneous echotexture of the left testicle. Limited venous flow in the left testicle. Questionable arterial flow. Unremarkable epididymis. No hydrocele or varicocele. IMPRESSION: 1. Very limited venous flow in the left testicle and questionable arterial flow with heterogeneous echogenicity. Testicular torsion not excluded. 2. Moderate to large right hydrocele. Peripheral flow demonstrated in the right testicle, which demonstrates unremarkable echogenicity. Critical findings Critical Result: Testicular torsion not excluded in the left testicle. Findings discussed with the bellows charger assembler in the ER at 12/25/2024 02:47 PM CDT, and acknowledged receipt and understanding of the findings. ULTRASOUND OF SCROTUM AND CONTENTS. INDICATION: PER MD, TESTICLE PAIN COMPARISON: US TESTICULAR ULTRASOUND on DOS: 12/25/24, TECHNIQUE: Multiple real-time grayscale sonographic and color and duplex Doppler images of the scrotum and its contents were obtained. FINDINGS: The right testicle measures 4.5 x 2.8 x 3.0 cm. The left testicle measures 3.2 x 2.1 x 2.0 cm. Both testicles demonstrate homogeneous echotexture without evidence of focal lesions. The bilateral epididymides are not evaluated on this study. Subsequent color and duplex Doppler interrogation of the testes demonstrated symmetric normal vascular flow to both testicles. Similar moderate to large right hydrocele. Scrotal edema is noted. IMPRESSION: 1. No evidence of torsion, epididymitis, and/or orchitis. Improved findings when compared to previous same day ultrasound. 2. Similar moderate to large right hydrocele. Condition at Discharge: Stable Final Diagnosis/Problems List Acute hypoxic respiratory failure likely due to acute decompensated heart failure Acute on chronic systolic heart failure (HFrEF 10-15%) Acute bilateral scrotal edema likely due to above, ruled out acute testicular torsion NEIL likely due to vasomotor nephropathy in the setting of decompensated heart failure Acute hyperkalemia; resolved Acute transaminitis Dyslipidemia Discharge Disposition: Home Discharge Instruct/Medications Diet: Cardiac 2g Na,low cholest Diet comment: restricted salt diet Activity: No Restrictions, As Tolerated Follow Up/Referral: F/U with his PCP in 1 week F/U on [place] clinic in 1 week F/U with sleeping car conductor as outpatient within 1 to 2 weeks Follow up with Urology as outpatient within two weeks Medications: Empagliflozin 10 mg daily Furosemide 40 mg daily Potassium chloride 10 mEq daily Entresto 0.5 tab b.i.d. Spironolactone 25 mg daily Discharge Statement: "Patient was advised to return to the ER or call 911 if any headaches, dizziness, shortness of breath, chest pain, abdominal pain, bleeding, fevers, or worsening of medical condition. Patient was counseled about treatment plan, medications, possible side effects, patientverbalized understanding. All questions were answered to the best of my ability. This discharge took greater then 30 minutes in planning, reviewing documentation, counseling the patient, and discussing with other team members." ASSESSMENT ASSESSMENT Assessment Acute hypoxic respiratory failure likely due to acute decompensated heart failure Acute on chronic systolic heart failure (HFrEF 10-15%) Acute bilateral scrotal edema likely due to above, ruled out acute testicular torsion NEIL likely due to vasomotor nephropathy in the setting of decompensated heart failure Acute hyperkalemia; resolved Acute transaminitis Dyslipidemia Addendum Addendum Addendum I was physically present for the hill portions of the service provided to patient by THE RESIDENT. I have reviewed the documentation, discussed the case with resident and agree with the resident's documentation except as noted. Also the patient's clinical case was discussed with the patient's nurse. This medical document was created using an electronic medical record system with computerized dictation system. Although this document has been carefully reviewed, there might still be some phonetic and typographical errors. These areas are purely typographical due to imperfections of the software programs, and do not reflect any compromise in the patient's medical care. Late signature. Date of Service: December 30, 2024 Billing Provider: LAURIE WHITNEY MD Common Visit Codes: 12587-YEA/OBS DISCH DAY >30min TYREL MORA RESIDENT December 30, 2024 13:02 LAURIE WHITNEY MD December 31, 2024 10:01
[2024-12-30 14:18] VITALS: BP 124/65; PULSE 57; RESP 20; TEMP 36.7; O2SAT 94
== END 2024-12-30 15:52 | disposition home or self-care (01) | DRG 133 ==
LOC: ER 09:31 → OVERFLOW 14:03 → WEST WING 17:46 → TELE-WESTW 12-27 23:40
PROVIDERS: ADMIT Internal Medicine; ATTEND Emergency Medicine
DX: J96.01 Acute respiratory failure with hypoxia (principal); N17.0 Acute kidney failure with tubular necrosis; I50.23 Acute on chronic systolic (congestive) heart failure; F15.90 Other stimulant use, unspecified, uncomplicated; E87.5 Hyperkalemia; E78.5 Hyperlipidemia, unspecified; E16.2 Hypoglycemia, unspecified; N43.3 Hydrocele, unspecified; F17.210 Nicotine dependence, cigarettes, uncomplicated; R74.01 Elevation of levels of liver transaminase levels; Z86.73 Personal history of transient ischemic attack (TIA), and cerebral infarction without residual deficits; Z81.1 Family history of alcohol abuse and dependence; Z82.3 Family history of stroke; Z79.899 Other long term (current) drug therapy; Z79.84 Long term (current) use of oral hypoglycemic drugs; Z79.82 Long term (current) use of aspirin
CPT/HCPCS: 36415; 71046; 76870; 80048; 80053; 80061; 80307; 81001; 82962; 83735; 83880; 84132; 84484; 85025; 85610; 85730; 93005; 96374; 99291; G0378